=== PATIENT | female | born 1930 | race Caucasian/White ===

== ENCOUNTER 2016-04-09 13:02 | Inpatient (IN) | payer OTHER ==
[~2016-04-09] VITALS: Ht 165.1 cm; Wt 67.1 kg
[2016-04-09 15:15] VITALS: BP 152/60; PULSE 76; TEMP 37; O2SAT 91; BMI 27.6
[2016-04-09] MEDS ORDERED: CLON0.2T PO (16:39)
[2016-04-09] MEDS ORDERED: SYN100 (16:39)
[2016-04-09] MEDS ORDERED: NVLGI7030 SC ×2 (16:39)
[2016-04-09] MEDS ORDERED: [UNRECOGNIZED DRUG - CODE] (16:39)
[2016-04-09] MEDS ORDERED: SERT-234 PO (16:39)
[2016-04-09] MEDS ORDERED: AMLO-110 PO (16:39)
[2016-04-09] MEDS ORDERED: FLUT0.15 (16:39)
[2016-04-09] MEDS ORDERED: PANT40TA PO (16:39)
[2016-04-09] MEDS ORDERED: CALC667C4 PO (16:39)
[2016-04-09] MEDS ORDERED: LEVO-17 PO (16:39)
[2016-04-09] MEDS ORDERED: vitamin d (16:39)
[2016-04-09] MEDS ORDERED: POLYSOL4 OP (16:39)
[2016-04-09] MEDS ORDERED: IPRASOL4 INH (16:39)
[2016-04-09] MEDS ORDERED: CRFL PO (16:39)
[2016-04-09] MEDS ORDERED: B-CO1CAP17 PO (16:39)
[2016-04-09] MEDS ORDERED: CARV12.5 PO (16:39)
--- NOTE | 2016-04-09 17:50 | History and Physical ---
History & Physical H&P dictated. Treating for healthcare associated pneumonia, new A.Fib, ESRD on dialysis. With chronic conditions to include: vascular dementia, CAD, PAD, Depression.
[2016-04-09 17:51] LABS: BASO % 0.2 %; BASO ABS # 0.03 K/uL (0-0.2); EOS % 0.5 %; HEMATOCRIT 26.6 % (37-47); IG% 1.4 %; LYMPH % 7.6 %; LYMPH ABS # 1.02 K/uL (1.2-3.4); MEAN CELL VOLUME 96.4 fL (80-100); MEAN CORPUSCULAR HEMOGLOBIN 32.2 pg (25-34); MEAN CORPUSCULAR HGB CONC 33.5 g/dl (32-36); MEAN PLATELET VOLUME 8.6 fL (7.4-10.4); MONO % 4.9 %; NEUT % 85.4 %; PLATELET COUNT 239 K/uL (130-400); RED BLOOD COUNT 2.76 M/uL (4.2-5.4); WHITE BLOOD COUNT 13.38 K/uL (4.8-10.8)
[2016-04-09] MEDS ORDERED: PATIENT'S ALLERGY INFO NEEDS ENTERED SCH (18:00)
[2016-04-09] MEDS ORDERED: ARTIFICIAL TEARS OP SOLN OP PRN ×2 (18:00)
[2016-04-09 18:04] LABS: PARTIAL THROMBOPLASTIN RATIO 1.1
[2016-04-09 18:21] LABS: COMPLETE YES; MICROCYTOSIS PRESENT
[2016-04-09 18:35] LABS: ALB/GLOB RATIO 0.8 (0.9-2); BUN/CREATININE RATIO 4.3 (10-20); CALCIUM 9.4 mg/dl (8.5-10.1); CREATININE 6.1 mg/dl (0.60-1.20); POTASSIUM 3.5 mmol/L (3.5-5.1)
[2016-04-09] MEDS ORDERED: PHARMACY GLYCEMIC MGMT CONSULT PRN (18:58)
[2016-04-09] MEDS ORDERED: GLUCAGON FOR INJ 1 MG VIAL SQ PRN (19:00)
[2016-04-09] MEDS ORDERED: GLUCOSE 40% GEL 15 GM TUBE PO PRN (19:00)
[2016-04-09] MEDS ORDERED: GLUCOSE 10 TABS/TUBE PO PRN (19:00)
[2016-04-09] MEDS ORDERED: DEXTROSE 50% 50 ML SYR IV PRN (19:00)
[2016-04-09] MEDS ORDERED: HEPARIN 25,000 UNIT/500ML D5W 500 ML IV PRN (19:00)
[2016-04-09] MEDS: ALBUT/IPRATROP 3MG/0.5MG NEB 3 ML VIAL INH SCH (19:07)
[2016-04-09 19:09] VITALS: PULSE 76; O2SAT 83
[2016-04-09] MEDS ORDERED: VANCOMYCIN CONSULT ACTIVE PRN (19:15)
[2016-04-09] MEDS ORDERED: NURSING VERBAL MED ORDER ONE ×2 (19:15→19:30)
[2016-04-09] MEDS: NITROGLYCERIN OINT 2% 1GM PACKET EXT SCH (19:36)
[2016-04-09] MEDS: CARVEDILOL 12.5 MG TAB PO SCH (19:46)
[2016-04-09 19:52] VITALS: BP 154/65; PULSE 82; TEMP 37; O2SAT 94
[2016-04-09] MEDS ORDERED: ASPIRIN 81 MG ECTAB PO ONE (20:00)
[2016-04-09] MEDS ORDERED: VANCOMYCIN INJ 1,500 MG in SODIUM CHLORIDE 0.9% 500ML 500 ML IV SCH (20:00)
[2016-04-09] MEDS ORDERED: PANTOprazole SOD 40 MG TAB PO ONE (20:00)
--- NOTE | 2016-04-09 20:09 | HISTORY & PHYSICAL EXAMINATION ---
DATE OF ADMISSION: 04/09/2016 CHIEF COMPLAINT: The patient is a direct admit from an outlying hospital in [place]. She was apparently admitted there due to shortness of breath and hypoxia, it was felt to be due to a combination of pneumonia and pleural effusion, frequently. She had been placed on IV Rocephin and IV Levaquin for 3 days and there was concern that she was not improving. I also note that she appears to be in atrial fibrillation and I do not see that on any of her old records, so I am considering that a new finding. The patient has underlying vascular dementia, so history is taken from the chart. I evaluated the patient and asked her what her living arrangements are and she told me that she was living independently at home; however, I see that she is actually in either a [facility] or a personal senior living. So I do not feel her history is reliable. PAST MEDICAL HISTORY: Appears to be end-stage renal disease, on dialysis, coronary artery disease, type 2 diabetes mellitus insulin requiring, hyperlipidemia, hypothyroidism, depression, generalized weakness, ambulatory dysfunction, vascular dementia, peripheral vascular disease. PAST SURGICAL HISTORY: Surgeries are unknown at this time. ALLERGIES: She is allergic to no medications but HAS AN ALLERGY TO MOLD. MEDICATIONS: List of her medications include amlodipine 5 mg daily, calcium acetate 3 tablets 3 times per day with meals, clonidine 0.2 mg tablet twice a day, Coreg 12.5 mg twice a day, DuoNeb p.r.n., Flonase 2 sprays once daily in each nostril, GenTeal ophthalmic drops 1 drop each eye at bedtime. She was taking, I guess as an outpatient Levaquin 250 mg every 48 hours. Levothyroxine 100 mcg daily, Protonix 40 mg daily, Renal Caps 1 cap daily, sertraline 150 mg daily, Kayexalate 30 mL on Tuesday, Tuesday, and Tuesday. Systane ophthalmic drops 3 times a day, 1 drop each eye. Vitamin D and Carafate, this was a treatment for approximately 2 weeks apparently. Novolin N 70/30 16 units in the morning and 10 units at night plus a sliding scale. SOCIAL HISTORY: The patient resides at either a personal senior living or nursing facility. The chart says that she does have a history of tobacco abuse but not now. FAMILY HISTORY: Unknown. REVIEW OF SYSTEMS: A 10-system review was performed, all of which was negative and she did not even complain of cough or shortness of breath. She does not even know why she was transferred to our facility. PHYSICAL EXAMINATION: VITAL SIGNS: At our facility have temperature 37.0, pulse 76, respiratory rate of 20, blood pressure 152/60, pulse ox 91% on 2 liters nasal cannula. GENERAL: The patient is awake and alert. She is oriented to person, not in acute distress. HEENT: TMs intact. No inflammation. Extraocular muscles intact. Pupils equal, round, react to light and accommodation. Mucous membranes were moist. Throat was clear. NECK: No JVD or lymphadenopathy. LUNGS: Showed rhonchus sounds throughout with decreased breath sounds at the bases. HEART: Irregular with a normal S1 and S2, and a 3/6 systolic murmur that radiated to her right upper chest. ABDOMEN: Soft, nontender, nondistended, positive bowel sounds. EXTREMITIES: No clubbing, cyanosis or edema. NEUROLOGIC: Cranial nerves II-XII are grossly intact and nonfocal. SKIN: Warm and dry without obvious rash. PSYCHIATRIC: The patient is pleasantly demented. I ordered labs which are pending at this time as is a chest x-ray; however, one of the records that came from [facility] which was performed this morning, white blood cell count 15, hemoglobin 8.9, hematocrit 27.1, platelets of 253,000. Sodium 132, potassium 4.1, chloride 95, CO2 24, BUN 24, creatinine 5.74, albumin 2.9, AST of 44, ALT of 12. CPK 116 and troponin of 0.17. BNP was 2340. A CAT scan of the chest which was performed today, showing the following impression: Pleural effusions with patchy areas of presumed pneumonia within the right lung, probable superimposed pulmonary edema, 4.6 dilatation of a mid ascending thoracic aorta, indeterminate left adrenal mass. There does appear to be macroscopic fat and the mass may represent myelolipoma. ASSESSMENT AND PLAN: So the patient is assessed as: 1. Hypoxemia in the face of right-sided pneumonia and secondary pleural effusion, failing oral Levaquin and IV Rocephin for 3 days. 2. End-stage renal disease, requiring dialysis. 3. Vascular dementia. 4. Peripheral artery disease. 5. Hyperlipidemia. 6. Coronary artery disease. 7. History of peptic ulcer. 8. Atrial fibrillation which I have to consider new at this point, I do not see it listed on any of her records, either from the hospital or the nursing facility but I do not have any other EKGs to compare. She has also AFib on her monitor currently. PLAN: The patient is admitted on telemetry. Considering her healthcare associated pneumonia, therefore placing her on vancomycin IV and cefepime and asking pharmacy to evaluate and adjust those dosages in light of her renal disease, and I will put her on heparin drip because of the new onset atrial fibrillation and as we discussed with family and get input from specialist as to long-term anticoagulation, which is yet to be seen. She will be given supplemental oxygen and nebulizer therapies. She is already on Coreg and her heart rate is controlled at this time. We can always address that if she becomes tachycardic or has a rapid ventricular response. I have consulted nephrology to manage her end-stage renal disease and we will just Hep-Lock an IV, so not as to cause any more fluid overload. Physical and occupational therapy are consulted and DVT prophylaxis will be in the form of TEDs, SCDs and covered while she is on the heparin drip. Appropriate home medications are continued. We will put her on sliding scale insulin and will ask the pharmacist for glycemic management.
[2016-04-09] MEDS: CEFEPIME IV 1,000 MG in DEXTROSE 5% 100ML 100 ML IV SCH (20:21)
[2016-04-09] MEDS: CLONIDINE HCL 0.1 MG TAB PO SCH (20:23)
[2016-04-09] MEDS: INSULIN ASPART 100 UNITS/ML 3 ML PEN SC SCH (20:24)
--- NOTE | 2016-04-09 20:30 | Pharmacy Progress Note ---
Pharmacy Antibiotic Consult Date of Service: Apr 09, 2016. Pharmacy Dosing Scope Pharmacy is consulted to initiate Vancomycin IV dosing therapy, order appropriate labs and adjust drug dose/frequency for possible respiratory infection. Subjective The patient is a 85 year old female admitted on Apr 09, 2016 at 15:25. Objective Height (Feet): 5 Height (Inches): 5.00 Weight (Kilograms): 75.200 Lab Results (24hrs): Laboratory Tests Test 04/09/16 17:42 BUN/Creatinine Ratio 4.3 Blood Urea Nitrogen 26 mg/dl Creatinine 6.10 mg/dl White Blood Count 13.38 K/uL Red Blood Count 2.76 M/uL Hemoglobin 8.9 g/dL Hematocrit 26.6 % Mean Corpuscular Volume 96.4 fL Mean Corpuscular Hemoglobin 32.2 pg Mean Corpuscular Hemoglobin Concent 33.5 g/dl Platelet Count 239 K/uL Mean Platelet Volume 8.6 fL Neutrophils (%) (Auto) 85.4 % Lymphocytes (%) (Auto) 7.6 % Monocytes (%) (Auto) 4.9 % Eosinophils (%) (Auto) 0.5 % Basophils (%) (Auto) 0.2 % Neutrophils # (Auto) 11.41 K/uL Lymphocytes # (Auto) 1.02 K/uL Monocytes # (Auto) 0.66 K/uL Eosinophils # (Auto) 0.07 K/uL Basophils # (Auto) 0.03 K/uL Recent Pertinent Medications Also on Cefepime 1 gm IV q24h. Assessment & Plan * Loading dose: Vancomycin (20 mg/kg) = 1500 mg IV x1 dose ordered for tonight. * Patient's Scr = 6.1 and is on Hemodialysis. * Will dose Vancomycin based on levels. * Goal trough level estimate: between 15 - 20 mcg/mL for lower respiratory infection. * A random Vancomycin level has been ordered for 04/10/16 with AM labs. Pharmacy will continue to follow and will adjust dose/frequency as necessary. Thank you
[2016-04-09] MEDS ORDERED: CLONIDINE HCL 0.2 MG TAB PO SCH (21:00)
[2016-04-09] MEDS: INSULIN GLARGINE SOLOSTAR 100 UNITS/ML 3 ML PEN SC SCH (21:12)
--- NOTE | 2016-04-09 21:14 | Pharmacy Progress Note ---
Glycemic Control Intl Consult Date of Service Apr 09, 2016. Scope Glycemic Pharmacist consulted by Dr Garza on 04/09/16 for glycemic control and to write orders per [facility] inpatient glycemic control protocol Objective Weight (Kilograms): 75.200 Accuchecks BSG (last 24hrs): Test 04/09/16 16:08 04/09/16 17:42 04/09/16 20:05 Bedside Glucose 166 mg/dl (70-90) 152 mg/dl (70-90) Random Glucose 159 mg/dl (70-99) Laboratory Data (last 24hrs) Test 04/09/16 17:42 Anion Gap 13.0 mmol/L BUN/Creatinine Ratio 4.3 Blood Urea Nitrogen 26 mg/dl Creatinine 6.10 mg/dl Potassium Level 3.5 mmol/L Sodium Level 138 mmol/L White Blood Count 13.38 K/uL Red Blood Count 2.76 M/uL Hemoglobin 8.9 g/dL Hematocrit 26.6 % Mean Corpuscular Volume 96.4 fL Mean Corpuscular Hemoglobin 32.2 pg Mean Corpuscular Hemoglobin Concent 33.5 g/dl Platelet Count 239 K/uL Mean Platelet Volume 8.6 fL Neutrophils (%) (Auto) 85.4 % Lymphocytes (%) (Auto) 7.6 % Monocytes (%) (Auto) 4.9 % Eosinophils (%) (Auto) 0.5 % Basophils (%) (Auto) 0.2 % Neutrophils # (Auto) 11.41 K/uL Lymphocytes # (Auto) 1.02 K/uL Monocytes # (Auto) 0.66 K/uL Eosinophils # (Auto) 0.07 K/uL Basophils # (Auto) 0.03 K/uL HbA1c Test 04/09/16 17:42 Recent Pertinent Medications Outpatient Anti-diabetic Regimen: * Novolog 70/30 16 units AM and 10 units PM * A1c = PENDING from 04/09/16 Risk Factors for Insulin Resistance: * Steroids: N/A * Infection: Healthcare-associated pneumonia; on Cefepime and Vancomycin * Pressors: N/A * IVF: Heparin drip * Recent Surgery: N/A * Diet: Type II DM * Mechanical Ventilation: N/A Assessment & Plan ASSESSMENT: * ADA & AACE recommend a goal blood sugar range 140-180 mg/dl for the majority of critically ill & non-critically ill patients. However, more stringent targets may be selected in individual cases. * Patient is ESRD on HD. Most recent HbA1c unknown, current lab is still pending at time of chart review. Patient was receiving Novolog 70/30 26 units/ day as an outpatient. Last dose of insulin 16 units was taken this AM. Will convert Novolog 70/30 to basal + bolus regimen to optimize safety and ease of titration while inpatient with her pneumonia. Blood glucose appears to be well controlled at this time, therefore calculated Novolog CR and CF calculated using outpatient regimen. PLAN FOR INPATIENT GLYCEMIC CONTROL: * Basal insulin with LANTUS 8 units SQ BID * Give 1/2 dose (4 units) if BS less than 120 * Correctional Insulin with NOVOLOG per scale ACHS or Q6hrs while NPO * Goal Range: Low 120 mg/dL - High 160 mg/dL * Correction Factor: 45 mg/dL/unit * Nutritional / Prandial insulin per carb ratio of 1 unit per 16 grams CHO consumed * Please note that the plan above was derived based on current level of insulin resistance and hospital stress. These recommendations are appropriate for inpatient admission only. Plan of care upon discharge will need to be reassessed to avoid potential outpatient hypo/hyperglycemia. Thank you.
--- NOTE | 2016-04-09 22:06 | DIAGNOSTIC IMAGING REPORT ---
CHEST 2 VIEWS ROUTINE HISTORY: Short of breath. Pneumonia. COMPARISON: None. FINDINGS: No pneumothorax. The heart is mildly enlarged. There are poststernotomy changes. There is diffuse interstitial and vascular thickening. No focal lung consolidations. Bilateral hilar prominence. There are low lung volumes. Trace bilateral pleural effusions seen on the lateral view. IMPRESSION: 1. Diffuse interstitial and vascular thickening with mild cardiomegaly and trace bilateral pleural effusions. This likely represents mild interstitial pulmonary edema. 2. Bilateral hilar enlargement. This could be due to the pulmonary vascular congestion. However, follow-up is recommended to ensure resolution. Electronically signed by: Taras Funk M.D. 04/09/2016 10:05 PM Dictated Date/Time: 04/09/2016 10:03 PM
[2016-04-10] VITALS (24 sets, daily range): BP systolic 91–150; BP diastolic 41–70; PULSE 64–78; TEMP 36.4–36.9; O2SAT 83–95
[2016-04-10] MEDS: NITROGLYCERIN OINT 2% 1GM PACKET EXT SCH ×4 (02:00→19:38)
[2016-04-10 06:32] LABS: ESTIMATED AVERAGE GLUCOSE 183 mg/dl; HA1C FLAG Normal (Normal)
[2016-04-10] MEDS: ALBUT/IPRATROP 3MG/0.5MG NEB 3 ML VIAL INH SCH ×5 (07:00→19:20)
[2016-04-10] MEDS: LEVOTHYROXINE 100 MCG TAB PO SCH (07:37)
[2016-04-10] MEDS: CARVEDILOL 12.5 MG TAB PO SCH ×2 (07:38→19:37)
[2016-04-10] MEDS: PANTOprazole SOD 40 MG TAB PO SCH (07:38)
[2016-04-10] MEDS: SERTRALINE HCL 100 MG TAB PO SCH (07:38)
[2016-04-10] MEDS: CLONIDINE HCL 0.1 MG TAB PO SCH ×2 (07:38→19:38)
[2016-04-10] MEDS: INSULIN GLARGINE SOLOSTAR 100 UNITS/ML 3 ML PEN SC SCH ×2 (07:47→20:14)
[2016-04-10] MEDS: ONDANSETRON INJ 2 MG/ML 2 ML VIAL IV PRN (08:11)
[2016-04-10] MEDS: INSULIN ASPART 100 UNITS/ML 3 ML PEN SC SCH ×4 (08:55→20:14)
[2016-04-10 08:58] LABS: BASO % 0.5 %; BASO ABS # 0.05 K/uL (0-0.2); EOS % 3.6 %; HEMATOCRIT 26.3 % (37-47); IG% 1.3 %; LYMPH % 8.5 %; LYMPH ABS # 0.94 K/uL (1.2-3.4); MEAN CELL VOLUME 97.4 fL (80-100); MEAN CORPUSCULAR HEMOGLOBIN 32.6 pg (25-34); MEAN CORPUSCULAR HGB CONC 33.5 g/dl (32-36); MEAN PLATELET VOLUME 9.2 fL (7.4-10.4); MONO % 5.9 %; NEUT % 80.2 %; PLATELET COUNT 273 K/uL (130-400); WHITE BLOOD COUNT 11.07 K/uL (4.8-10.8)
[2016-04-10] MEDS ORDERED: NEPHROCAPS PO SCH (09:00)
[2016-04-10 09:10] LABS: PARTIAL THROMBOPLASTIN RATIO 1.1
[2016-04-10 09:42] LABS: BUN/CREATININE RATIO 4.3 (10-20); CALCIUM 9.1 mg/dl (8.5-10.1); CREATININE 6.9 mg/dl (0.60-1.20); POTASSIUM 3.7 mmol/L (3.5-5.1)
[2016-04-10] MEDS ORDERED: NURSING VERBAL MED ORDER ONE (10:00)
[2016-04-10 10:02] LABS: COMPLETE YES; POLYCHROMASIA 1+
--- NOTE | 2016-04-10 12:59 | Nephrology Consultation ---
Nephrology Consultation Date of Consultation: Apr 10, 2016. Attending Physician: Dr Boucher Requesting Physician: Dr Garza Reason for Consultation: ESRD History of Present Illness 85 year old female whom I'm asked to evaluate for ESRD care after she was transferred here from [facility] for mgt of PNA and ESRD. Other PMH as below. Pt granddaughter is at bedside today and helps w/ hx, to which pt cannot reliably contribute. She dialyzes MWF at [facility] under the care of a non [facility] weatherization coordinator (Dr. Wilde < spelling may be incorrect) via AVF. Her last tx was 04/07. She has reportedly been refusing more care recently per outpt unit > refused hospital initially yesterday even though her sats were in 60s on RA; refused dialysis; had reportedly/ possibly been refusing meds at facility. Has also been eating less and had lower blood pressures, lower interdialytic weight gains all of which is relatively new for this pt per outside unit staff. Here at [facility], pt is sitting up in her chair on RA w/ NAD; has nearly full lunch tray in front of her but tells me she's done. Granddaughter notes however that pt does not have her lower dentures and may not have had them for several days/weeks possibly. Pt willing to try some dialysis today, though not enthusiastic. Her K is 3.8 today and systolic blood pressures are labile from 90-150s. She was reportedly confrontational/ refusing care last evening and early this AM but willing to consider HD today. Past Medical/Surgical History -solitary kidney from -ESRD as above; on chronic HD since 2012; s/p R r-c AVF -DM >25 years -CAD s/p CABG 2012 -paroxysmal A fib -massive GI bleed 2012 c/b ischemic ATN -vascular dementia -? TIA -ambulatory dysfunction (w/c almost exclusively at her facility) -HL -hypothyroid -PVD Family History son w/ ESRD Social History Smoking Status: Former Smoker Alcohol Use: none Drug Use: none Marital Status: Housing Status: jail Occupation Status: disabled Allergies Coded Allergies: Molds and Smuts (Verified Allergy, Unknown, `, 04/09/16) Medications Current Inpatient Medications Medications (Trade) Dose Ordered Sig/Ivis Route Start Time Stop Time Status Last Admin Dose Admin Insulin Aspart (novoLOG ASPART) SLIDING SCALE G... ACHS SC 04/09/16 21:00 05/09/16 20:59 04/10/16 08:55 2 UNITS Albuterol/ Ipratropium (Duoneb) 3 ml QIDR INH 04/09/16 20:00 05/09/16 19:59 04/09/16 19:07 3 ML Carvedilol (Coreg Tab) 12.5 mg BID PO 04/09/16 21:00 05/09/16 20:59 04/10/16 07:38 12.5 MG Levothyroxine Sodium (Synthroid Tab) 100 mcg DAILYBB PO 04/10/16 06:00 05/10/16 05:59 04/10/16 07:37 100 MCG Pantoprazole Sodium (Protonix Tab) 40 mg QAM PO 04/10/16 09:00 05/10/16 08:59 04/10/16 07:38 40 MG Sertraline HCl (Zoloft Tab) 150 mg QAM PO 04/10/16 09:00 05/10/16 08:59 04/10/16 07:38 150 MG Ondansetron HCl (Zofran Inj) 4 mg Q6H PRN IV 04/09/16 17:15 05/09/16 17:14 04/10/16 08:11 4 MG Vitamin B Complex/ Vit C/Folic Acid 1 cap 1 cap QAM PO 04/10/16 09:00 05/10/16 08:59 04/10/16 07:38 1 CAP Cefepime HCl/ Dextrose (Maxipime IV/D5 100ml) 111.3 ml @ 200 mls/hr Q24H IV 04/09/16 20:00 04/16/16 19:59 04/09/16 20:21 200 MLS/HR Acetaminophen (Tylenol Tab) 650 mg Q4H PRN PO 04/09/16 17:15 05/09/16 17:14 Miscellaneous Information (Consult Glycemic Management Pharmacy) 1 ea UD PRN N/A 04/09/16 18:58 05/09/16 18:57 Artificial Tears (Artificial Tears) 1 drops Q3HWA PRN OP 04/09/16 18:00 05/09/16 17:59 Glucose (Glucose 40% Gel) 15-30 GRAMS 15 GRAMS... UD PRN PO 04/09/16 19:00 05/09/16 18:59 Glucose (Glucose Chew Tab) 4-8 Tablets 4 Tabl... UD PRN PO 04/09/16 19:00 05/09/16 18:59 Dextrose (Dextrose 50% 50ML Syringe) 25-50ML OF 50% DW IV FOR... UD PRN IV 04/09/16 19:00 05/09/16 18:59 Glucagon (Glucagon Inj) 1 mg UD PRN SQ 04/09/16 19:00 05/09/16 18:59 Vancomycin HCl (Consult) 1 ea UD PRN N/A 04/09/16 19:15 05/09/16 19:14 Nitroglycerin (Nitroglycerin 2% Oint) 1 inch Q6H EXT 04/09/16 20:00 05/09/16 19:59 04/10/16 07:37 1 INCH Clonidine HCl (Catapres Tab) 0.2 mg BID PO 04/09/16 21:00 05/09/16 20:59 04/10/16 07:38 0.2 MG Insulin Glargine (Lantus Solostar Pen) 8 unit BID SC 04/09/16 21:00 05/09/16 20:59 04/10/16 07:47 8 UNIT Home Meds and Scripts Medications Dose Route/Sig Max Daily Dose Days Date Category Novolog Mix 70/30 (Insulin Aspart Prota 70%/Aspart 30%) Susp 0 SC 04/09/16 Reported Novolog Mix 70/30 (Insulin Aspart Prota 70%/Aspart 30%) Susp 0 SC 04/09/16 Reported Carafate (Sucralfate) 1 Gm/10 Ml Therese 10 Ml PO BID 6 04/09/16 Reported [vitamin d] 04/09/16 Reported Systane (Polyethylene Glycol-Propylene) 1 Angelic Angelic 1 Drops OP QID 04/09/16 Reported Kayexalate (Sodium Polystyrene Sulfonate) 1 Gm Powd 04/09/16 Reported Zoloft (Sertraline HCl) 100 Mg Tab 100 Mg PO DAILY 04/09/16 Reported Nephrocaps (Vitamin B Complex/Vit C/Folic Acid) Cap 1 Cap PO DAILY 90 04/09/16 Reported Protonix (Pantoprazole Sodium) 40 Mg Tab 40 Mg PO DAILY 04/09/16 Reported Synthroid (Levothyroxine Sodium) 100 Mcg Tab 04/09/16 Reported Levaquin (Levofloxacin) 250 Mg Tab 250 Mg PO DAILY 10 04/09/16 Reported Flonase Allergy Relief (Fluticasone Propionate (Nasal)) 50 Mcg/Act Spr 04/09/16 Reported Duoneb (Ipratropium-Albuterol) 3 Ml Nebu 1 Treatment INH Q4H 04/09/16 Reported Coreg (Carvedilol) 12.5 Mg Tab 12.5 Mg PO 04/09/16 Reported Catapres (Clonidine Hcl) 0.2 Mg Tab 1 Tab PO BID 30 04/09/16 Reported Phoslo 667 Mg (Calcium Acetate) 667 Mg Cap 1 Cap PO WM 04/09/16 Reported Norvasc (Amlodipine Besylate) 5 Mg Tab 5 Mg PO DAILY 04/09/16 Reported Review of Systems Constitutional: No fatigue, No fever, No weakness, No weight loss Eyes: No worsening of vision ENT: No hearing loss Respiratory: No cough, No shortness of breath Cardiac: No chest pain, No edema, No palpitations Abdomen: + diarrhea (states had diarrhea last week (? if true)), No constipation, No nausea, No pain, No vomiting Musculoskeletal: No joint pain, No muscle pain, No swelling Female : + problem reported (states cont to void small amount daily; no change in voiding habit) Neuro: + balance problems, + memory loss, + weakness Psych: No anxiety, No depression symptoms Heme: No abnormal bleeding/bruising Endo: No fatigue Skin: No rash ROS limited by pt dementia Physical Exam Date Time Temp Pulse Resp B/P Pulse Ox O2 Delivery O2 Flow Rate FiO2 04/10/16 12:17 83 Room Air 04/10/16 11:21 36.7 69 19 93/51 90 Room Air 04/10/16 08:01 83 Room Air 04/10/16 07:20 144/56 04/10/16 04:18 Nasal Cannula 2.0 04/10/16 00:00 Nasal Cannula 2.0 04/09/16 20:00 Nasal Cannula 2.0 04/09/16 19:52 37.0 82 20 154/65 94 Nasal Cannula 2.0 04/09/16 19:09 76 18 83 Room Air 04/09/16 15:15 37.0 76 20 152/60 91 Nasal Cannula 2.0 24-Hour Column 04/10/16 08:00 Intake Total 685 ml Balance 685 ml General Appearance: WD/WN, no apparent distress, + pertinent finding (sitting up in chair on RA) Eyes: EOMI ENT: hearing grossly normal Neck: supple Respiratory/Chest: no respiratory distress, no accessory muscle use, + decreased breath sounds, + crackles Cardiovascular: no edema, + irregularly irregular Abdomen: normal bowel sounds, non tender, soft, + pertinent finding (no hinton) Extremities: no pedal edema, + pertinent finding (avf + t/b) Neurologic/Psych: alert, normal mood/affect, + pertinent finding (poor recall) Skin: no jaundice, warm/dry, no rash Diagnostics Last 24 Hours Test 04/09/16 16:08 04/09/16 17:42 04/09/16 20:05 04/10/16 08:14 Bedside Glucose 166 mg/dl 152 mg/dl 229 mg/dl White Blood Count 13.38 K/uL Red Blood Count 2.76 M/uL Hemoglobin 8.9 g/dL Hematocrit 26.6 % Mean Corpuscular Volume 96.4 fL Mean Corpuscular Hemoglobin 32.2 pg Mean Corpuscular Hemoglobin Concent 33.5 g/dl Platelet Count 239 K/uL Mean Platelet Volume 8.6 fL Neutrophils (%) (Auto) 85.4 % Lymphocytes (%) (Auto) 7.6 % Monocytes (%) (Auto) 4.9 % Eosinophils (%) (Auto) 0.5 % Basophils (%) (Auto) 0.2 % Neutrophils # (Auto) 11.41 K/uL Lymphocytes # (Auto) 1.02 K/uL Monocytes # (Auto) 0.66 K/uL Eosinophils # (Auto) 0.07 K/uL Basophils # (Auto) 0.03 K/uL RDW Standard Deviation 58.0 fL RDW Coefficient of Variation 16.9 % Immature Granulocyte % (Auto) 1.4 % Immature Granulocyte # (Auto) 0.19 K/uL Microcytosis PRESENT Prothrombin Time 11.0 SECONDS Prothromb Time International Ratio 1.0 Activated Partial Thromboplast Time 29.6 SECONDS Partial Thromboplastin Ratio 1.1 Sodium Level 138 mmol/L Potassium Level 3.5 mmol/L Chloride Level 97 mmol/L Carbon Dioxide Level 28 mmol/L Anion Gap 13.0 mmol/L Blood Urea Nitrogen 26 mg/dl Creatinine 6.10 mg/dl Est Creatinine Clear Calc Drug Dose 6.6 ml/min Estimated GFR () 6.6 Estimated GFR (Non- 5.7 BUN/Creatinine Ratio 4.3 Random Glucose 159 mg/dl Estimated Average Glucose 183 mg/dl Hemoglobin A1c 8.0 % Lactic Acid Level 1.2 mmol/L Calcium Level 9.4 mg/dl Total Bilirubin 0.3 mg/dl Aspartate Amino Transf (AST/SGOT) 24 U/L Alanine Aminotransferase (ALT/SGPT) 14 U/L Alkaline Phosphatase 62 U/L Troponin I 2.620 ng/ml Total Protein 6.6 gm/dl Albumin 2.9 gm/dl Globulin 3.7 gm/dl Albumin/Globulin Ratio 0.8 Test 04/10/16 08:25 04/10/16 11:14 White Blood Count 11.07 K/uL Red Blood Count 2.70 M/uL Hemoglobin 8.8 g/dL Hematocrit 26.3 % Mean Corpuscular Volume 97.4 fL Mean Corpuscular Hemoglobin 32.6 pg Mean Corpuscular Hemoglobin Concent 33.5 g/dl Platelet Count 273 K/uL Mean Platelet Volume 9.2 fL Neutrophils (%) (Auto) 80.2 % Lymphocytes (%) (Auto) 8.5 % Monocytes (%) (Auto) 5.9 % Eosinophils (%) (Auto) 3.6 % Basophils (%) (Auto) 0.5 % Neutrophils # (Auto) 8.89 K/uL Lymphocytes # (Auto) 0.94 K/uL Monocytes # (Auto) 0.65 K/uL Eosinophils # (Auto) 0.40 K/uL Basophils # (Auto) 0.05 K/uL RDW Standard Deviation 60.0 fL RDW Coefficient of Variation 17.1 % Immature Granulocyte % (Auto) 1.3 % Immature Granulocyte # (Auto) 0.14 K/uL Nucleated RBC Absolute Count (auto) 0.03 K/uL Nucleated Red Blood Cells % 0.3 % Polychromasia 1+ Activated Partial Thromboplast Time 28.1 SECONDS Partial Thromboplastin Ratio 1.1 Sodium Level 138 mmol/L Potassium Level 3.7 mmol/L Chloride Level 97 mmol/L Carbon Dioxide Level 25 mmol/L Anion Gap 16.0 mmol/L Blood Urea Nitrogen 29 mg/dl Creatinine 6.90 mg/dl Est Creatinine Clear Calc Drug Dose 5.8 ml/min Estimated GFR () 5.7 Estimated GFR (Non- 4.9 BUN/Creatinine Ratio 4.3 Random Glucose 217 mg/dl Calcium Level 9.1 mg/dl Troponin I 1.790 ng/ml Random Vancomycin Level 16.0 mcg/ml Bedside Glucose 181 mg/dl Diagnostic Radiology: cxr mild pulm edema; hilar fullness EKG: ecg AFib Assessment & Plan 85 y/o F w/ ESRD on MWF HD, dementia, DM, solitary kidney, CAD, a fib, PVD admitted with AF and pneumonia ESRD Her blood pressure is labile but generally acceptable; she has some mild fluid overload but is not likely to tolerate aggressive UF; ? if behavioral issues will limit dialysis in this for pt unfamiliar environment -gentle HD today at bedside on 3 K bath, up to 1L UF as bp tolerates -next hd tentatively for 04/12 or as clinical needs dictate -daily bmp pls -note not on binders here though is as outpt - will add if phos shows need; will make nephrovite HS Anemia of esrd -10 k epo w/ HD; will add iron studies to admission labs PNA on vanco and cefepime; lactate wnl; on RA currently but lung exam/ CXR noted a fib -low threshold to check TSH if indicated; per granddaughter who is a nurse this is not a new dx. Appreciate consult; will follow with you; will coordinate care w/ Dr. Lynch.
[2016-04-10 13:39] LABS: PHOSPHORUS 3.1 mg/dl (2.5-4.9)
[2016-04-10] MEDS ORDERED: HEPARIN SOD (PORCINE) 1000 UNIT/ML 10 ML VIAL IV SCH (14:45)
[2016-04-10] MEDS: HEPARIN SOD (PORCINE) 1000 UNIT/ML 10 ML VIAL IV SCH ×2 (15:45→16:15)
[2016-04-10] MEDS: NEPHROCAPS PO SCH (19:38)
[2016-04-10] MEDS: CEFEPIME IV 1,000 MG in DEXTROSE 5% 100ML 100 ML IV SCH (19:40)
--- NOTE | 2016-04-10 20:16 | Hospitalist Progress Note ---
Hospitalist Progress Note Date of Service Apr 10, 2016. Subjective Pt evaluation today including: conversation w/ patient, physical exam, chart review, lab review, review of studies, review of inpatient medication list Patient had no complaints she was receiving dialysis when I saw her. No chest pain, lightheadedness or fever/chills. Additional Comments: A 10 system review was performed and all were negative. Positives were placed in the subjective section. Objective Vital Signs Date Time Temp Pulse Resp B/P Pulse Ox O2 Delivery O2 Flow Rate FiO2 04/10/16 19:21 76 18 90 Room Air 04/10/16 19:06 36.7 76 18 150/51 90 Room Air 04/10/16 18:59 36.9 66 106/46 04/10/16 17:30 74 96/48 04/10/16 17:15 77 95/41 04/10/16 17:00 64 97/45 04/10/16 16:45 64 98/48 04/10/16 16:30 66 98/48 04/10/16 16:22 83 Room Air 04/10/16 16:15 69 101/44 04/10/16 16:00 67 91/45 04/10/16 15:45 65 104/46 04/10/16 15:43 36.4 67 18 106/51 90 Room Air 04/10/16 15:30 66 101/43 04/10/16 15:19 74 106/43 04/10/16 15:12 36.7 67 106/51 04/10/16 12:17 83 Room Air 04/10/16 11:22 64 18 90 Room Air 04/10/16 11:21 36.7 69 19 93/51 90 Room Air 04/10/16 08:01 83 Room Air 04/10/16 07:20 144/56 04/10/16 04:18 Nasal Cannula 2.0 04/10/16 00:00 Nasal Cannula 2.0 Physical Exam Notes: GENERAL: The patient is awake and alert. She is oriented to person, not in acute distress. HEENT: TMs intact. No inflammation. Extraocular muscles intact. Pupils equal, round, react to light and accommodation. Mucous membranes were moist. Throat was clear. NECK: No JVD or lymphadenopathy. LUNGS: Showed less rhonchus sounds throughout with decreased breath sounds at the bases. HEART: Irregular with a normal S1 and S2, and a 3/6 systolic murmur that radiated to her right upper chest. ABDOMEN: Soft, nontender, nondistended, positive bowel sounds. EXTREMITIES: No clubbing, cyanosis or edema. NEUROLOGIC: Cranial nerves II-XII are grossly intact and nonfocal. SKIN: Warm and dry without obvious rash. PSYCHIATRIC: The patient is pleasantly demented. Laboratory Results Last 24 Hours Test 04/10/16 08:14 04/10/16 08:25 04/10/16 11:14 04/10/16 16:02 Bedside Glucose 229 mg/dl 181 mg/dl 150 mg/dl White Blood Count 11.07 K/uL Red Blood Count 2.70 M/uL Hemoglobin 8.8 g/dL Hematocrit 26.3 % Mean Corpuscular Volume 97.4 fL Mean Corpuscular Hemoglobin 32.6 pg Mean Corpuscular Hemoglobin Concent 33.5 g/dl Platelet Count 273 K/uL Mean Platelet Volume 9.2 fL Neutrophils (%) (Auto) 80.2 % Lymphocytes (%) (Auto) 8.5 % Monocytes (%) (Auto) 5.9 % Eosinophils (%) (Auto) 3.6 % Basophils (%) (Auto) 0.5 % Neutrophils # (Auto) 8.89 K/uL Lymphocytes # (Auto) 0.94 K/uL Monocytes # (Auto) 0.65 K/uL Eosinophils # (Auto) 0.40 K/uL Basophils # (Auto) 0.05 K/uL RDW Standard Deviation 60.0 fL RDW Coefficient of Variation 17.1 % Immature Granulocyte % (Auto) 1.3 % Immature Granulocyte # (Auto) 0.14 K/uL Nucleated RBC Absolute Count (auto) 0.03 K/uL Nucleated Red Blood Cells % 0.3 % Polychromasia 1+ Activated Partial Thromboplast Time 28.1 SECONDS Partial Thromboplastin Ratio 1.1 Sodium Level 138 mmol/L Potassium Level 3.7 mmol/L Chloride Level 97 mmol/L Carbon Dioxide Level 25 mmol/L Anion Gap 16.0 mmol/L Blood Urea Nitrogen 29 mg/dl Creatinine 6.90 mg/dl Est Creatinine Clear Calc Drug Dose 5.8 ml/min Estimated GFR () 5.7 Estimated GFR (Non- 4.9 BUN/Creatinine Ratio 4.3 Random Glucose 217 mg/dl Calcium Level 9.1 mg/dl Phosphorus Level 3.1 mg/dl Iron Level 70 mcg/dl Total Iron Binding Capacity 141 mcg/dl Transferrin 121 mg/dl Transferrin % Saturation 41 % Troponin I 1.790 ng/ml Random Vancomycin Level 16.0 mcg/ml Test 04/10/16 19:54 Bedside Glucose 150 mg/dl Assessment and Plan 1. Hypoxemia in the face of right-sided pneumonia and secondary pleural effusion - Vanco d/c'd today. remains on .IV Cefepime 2. End-stage renal disease, requiring dialysis which she had today. 3. Vascular dementia. 4. Peripheral artery disease. 5. Hyperlipidemia. 6. Coronary artery disease. 7. History of peptic ulcer. 8. Atrial fibrillation - rate controlled, due to fall risk full anticoagulation withheld.
[2016-04-11] VITALS (17 sets, daily range): BP systolic 103–136; BP diastolic 47–84; PULSE 59–76; TEMP 36.5–36.9; O2SAT 68–98
[2016-04-11] MEDS: NITROGLYCERIN OINT 2% 1GM PACKET EXT SCH ×4 (01:44→20:01)
[2016-04-11] MEDS: LEVOTHYROXINE 100 MCG TAB PO SCH (06:00)
[2016-04-11] MEDS: ALBUT/IPRATROP 3MG/0.5MG NEB 3 ML VIAL INH SCH ×2 (07:58→11:17)
[2016-04-11] MEDS: CARVEDILOL 12.5 MG TAB PO SCH ×2 (08:05→19:59)
[2016-04-11] MEDS: CLONIDINE HCL 0.1 MG TAB PO SCH ×2 (08:05→19:59)
[2016-04-11] MEDS: PANTOprazole SOD 40 MG TAB PO SCH (08:06)
[2016-04-11] MEDS: SERTRALINE HCL 100 MG TAB PO SCH (08:06)
[2016-04-11] MEDS: INSULIN ASPART 100 UNITS/ML 3 ML PEN SC SCH ×4 (08:35→20:49)
[2016-04-11] MEDS: INSULIN GLARGINE SOLOSTAR 100 UNITS/ML 3 ML PEN SC SCH ×2 (08:36→20:48)
[2016-04-11] MEDS: ONDANSETRON INJ 2 MG/ML 2 ML VIAL IV PRN (08:39)
[2016-04-11 09:40] LABS: HEMATOCRIT 24.5 % (37-47); MEAN CELL VOLUME 100.8 fL (80-100); MEAN CORPUSCULAR HEMOGLOBIN 32.1 pg (25-34); MEAN CORPUSCULAR HGB CONC 31.8 g/dl (32-36); MEAN PLATELET VOLUME 8.7 fL (7.4-10.4); PLATELET COUNT 229 K/uL (130-400); RED BLOOD COUNT 2.43 M/uL (4.2-5.4); WHITE BLOOD COUNT 9.91 K/uL (4.8-10.8)
[2016-04-11 09:52] LABS: PARTIAL THROMBOPLASTIN RATIO 1.1
[2016-04-11 10:20] LABS: BUN/CREATININE RATIO 3.8 (10-20); CALCIUM 8.6 mg/dl (8.5-10.1); CREATININE 5.1 mg/dl (0.60-1.20); POTASSIUM 3.8 mmol/L (3.5-5.1)
[2016-04-11 10:22] LABS: COMPLETE YES; EOSINOPHIL % 3.5 %; LYMPH ABS # 0.78 K/uL (1.2-3.4); LYMPHOCYTE % 7.9 %; MYELOCYTE % 0.9 %; NEUTROPHILS % 85.9 %
--- NOTE | 2016-04-11 12:45 | Hospitalist Progress Note ---
Hospitalist Progress Note Date of Service Apr 11, 2016. Subjective Pt evaluation today including: conversation w/ patient, physical exam, chart review, lab review, review of studies, review of inpatient medication list Patient tells me that she feels about the same as yesterday. I noted that Hgb has decreased to 7.8 today. I discussed this with her and she is agreeable to transfusion. I dont feel that she is actively bleeding but rather dilutional effect. Her WBC has normalized today. She is afebrile. Additional Comments: A 10 system review was performed and all were negative. Positives were placed in the subjective section. Objective Vital Signs Date Time Temp Pulse Resp B/P Pulse Ox O2 Delivery O2 Flow Rate FiO2 04/11/16 11:26 36.7 64 18 112/61 95 Nasal Cannula 2.0 04/11/16 08:56 83 Room Air 04/11/16 08:12 36.9 76 18 122/59 90 Nasal Cannula 2.0 04/11/16 04:00 92 Nasal Cannula 2.0 04/11/16 03:26 36.5 65 17 118/64 91 Nasal Cannula 2.0 04/11/16 00:00 Room Air 04/10/16 23:34 92 Nasal Cannula 2.0 04/10/16 23:30 36.9 75 16 137/70 85 Room Air 04/10/16 20:00 Room Air 04/10/16 19:21 76 18 90 Room Air 04/10/16 19:06 36.7 76 18 150/51 90 Room Air 04/10/16 18:59 36.9 66 106/46 04/10/16 17:30 74 96/48 04/10/16 17:15 77 95/41 04/10/16 17:00 64 97/45 04/10/16 16:45 64 98/48 04/10/16 16:30 66 98/48 04/10/16 16:22 83 Room Air 04/10/16 16:15 69 101/44 04/10/16 16:00 67 91/45 04/10/16 15:45 65 104/46 04/10/16 15:43 36.4 67 18 106/51 90 Room Air 04/10/16 15:30 66 101/43 04/10/16 15:19 74 106/43 04/10/16 15:12 36.7 67 106/51 Physical Exam Notes: GENERAL: The patient is awake and alert. She is oriented to person, not in acute distress. HEENT: TMs intact. No inflammation. Extraocular muscles intact. Pupils equal, round, react to light and accommodation. Mucous membranes were moist. Throat was clear. NECK: No JVD or lymphadenopathy. LUNGS: Decreased breath sounds at the bases, but otherwise fairly clear. HEART: Irregular with a normal S1 and S2, and a 3/6 systolic murmur that radiated to her right upper chest. ABDOMEN: Soft, nontender, nondistended, positive bowel sounds. EXTREMITIES: No clubbing, cyanosis or edema. NEUROLOGIC: Cranial nerves II-XII are grossly intact and nonfocal. SKIN: Warm and dry without obvious rash. PSYCHIATRIC: The patient is pleasant and I noticed today that her confusion is much less than it had been the past 2 days. She does have dementia. Laboratory Results Last 24 Hours Test 04/10/16 16:02 04/10/16 19:54 04/11/16 06:52 04/11/16 09:25 Bedside Glucose 150 mg/dl 150 mg/dl 187 mg/dl White Blood Count 9.91 K/uL Red Blood Count 2.43 M/uL Hemoglobin 7.8 g/dL Hematocrit 24.5 % Mean Corpuscular Volume 100.8 fL Mean Corpuscular Hemoglobin 32.1 pg Mean Corpuscular Hemoglobin Concent 31.8 g/dl Platelet Count 229 K/uL Mean Platelet Volume 8.7 fL RDW Standard Deviation 62.9 fL RDW Coefficient of Variation 17.5 % Neutrophils % (Manual) 85.9 % Lymphocytes % (Manual) 7.9 % Monocytes % (Manual) 1.8 % Eosinophils % (Manual) 3.5 % Myelocytes % 0.9 % Neutrophils # (Manual) 8.51 K/uL Total Absolute Neutrophils 8.51 K/uL Lymphocytes # (Manual) 0.78 K/uL Total Absolute Lymphocytes 0.78 K/uL Monocytes # (Manual) 0.18 K/uL Eosinophils # (Manual) 0.35 K/uL Myelocytes # 0.09 K/uL Red Blood Cell Morphology Unremarkable Activated Partial Thromboplast Time 28.4 SECONDS Partial Thromboplastin Ratio 1.1 Sodium Level 139 mmol/L Potassium Level 3.8 mmol/L Chloride Level 101 mmol/L Carbon Dioxide Level 29 mmol/L Anion Gap 9.0 mmol/L Blood Urea Nitrogen 19 mg/dl Creatinine 5.10 mg/dl Est Creatinine Clear Calc Drug Dose 7.9 ml/min Estimated GFR () 8.2 Estimated GFR (Non- 7.1 BUN/Creatinine Ratio 3.8 Random Glucose 207 mg/dl Calcium Level 8.6 mg/dl Test 04/11/16 11:07 Bedside Glucose 223 mg/dl Assessment and Plan 1. Hypoxemia in the face of right-sided pneumonia and secondary pleural effusion - Continue of Cefepime IV. [place] Vanco not needed. 2. End-stage renal disease - She was dialyzed yesterday. . 3. Vascular dementia. 4. Peripheral artery disease. 5. Hyperlipidemia. 6. Coronary artery disease. 7. History of peptic ulcer. 8. Atrial fibrillation - rate controlled, due to fall risk full anticoagulation withheld. 9. chronic anemia with Hgb dropping to 7.8 today. I discussed with the patient and she agreed to have 1 unit. I obtained consent. DVT prophylaxis in the form of TEDs, SCD, and sub-q heparin. Continued [facility] stay due to: multiple IV medications needed
--- NOTE | 2016-04-11 14:40 | Pharmacy Progress Note ---
Glycemic Control: Progress Nt Date of Service Apr 11, 2016. Scope Glycemic Pharmacist consulted by Dr Garza on 04/09 for glycemic control and to write orders per [facility] inpatient glycemic control protocol. Objective Accuchecks BSG (last 24hrs): Test 04/10/16 16:02 04/10/16 19:54 04/11/16 06:52 04/11/16 09:25 Bedside Glucose 150 mg/dl (70-90) 150 mg/dl (70-90) 187 mg/dl (70-90) Random Glucose 207 mg/dl (70-99) Test 04/11/16 11:07 Bedside Glucose 223 mg/dl (70-90) Laboratory Data (last 24hrs) Test 04/11/16 09:25 Anion Gap 9.0 mmol/L BUN/Creatinine Ratio 3.8 Blood Urea Nitrogen 19 mg/dl Creatinine 5.10 mg/dl Potassium Level 3.8 mmol/L Sodium Level 139 mmol/L White Blood Count 9.91 K/uL Red Blood Count 2.43 M/uL Hemoglobin 7.8 g/dL Hematocrit 24.5 % Mean Corpuscular Volume 100.8 fL Mean Corpuscular Hemoglobin 32.1 pg Mean Corpuscular Hemoglobin Concent 31.8 g/dl Platelet Count 229 K/uL Mean Platelet Volume 8.7 fL HbA1c: Test 04/09/16 17:42 Hemoglobin A1c 8.0 % (4.5-5.6) H Recent Pertinent Medications Outpatient Anti-diabetic Regimen: * Novolog 70/30 16 units SC qAM, 10 units qPM * A1c = 8.0 % on 04/09/16 The patient is currently receiving: * Basal insulin: Lantus 8 units every 12 hours - 1/2 dose for BSG < 120 mg/dL * Correctional Insulin: Novolog Correction per scale ACHS Goal Range: Low 120 mg/dL - High 160 mg/dL Correction Factor: 35 mg/dL/unit * Prandial insulin: Per carb ratio of 1 unit per 12 grams CHO consumed Risk Factors for Insulin Resistance: * Steroids: methylprednisolone 40 mg IV q8h (starting today @ 1500) * Infection: PNA - on cefepime * Diet: T2DM Assessment & Plan ASSESSMENT: * ADA & AACE recommend a goal blood sugar range 140-180 mg/dl for the majority of critically ill & non-critically ill patients. However, more stringent targets may be selected in individual cases. * 85 yo F with hypoxemia 2nd PNA - on cefepime. Hx ESRD, chronic outpatient HD. Patient was last dialyzed 04/10. * BSG's trending up slightly today, possibly due to decreased insulin sensitivity as patient is not being dialyzed today. Furthermore, patient is starting steroids which is likely to increase insulin resistance * Will tighten carb ratio as this is best to manage steroid-induced hyperglycemia * Will also tighten correction factor as BSG's were increasing prior to initiation of steroids * Will keep Lantus the same as this is already > 50% of her total daily insulin dose yesterday * Will add in overnight BSG check to provide additional insulin, if necessary PLAN FOR INPATIENT GLYCEMIC CONTROL: * Basal insulin with LANTUS 8 units SQ BID - 1/2 dose for BSG < 120 mg/dL * Correctional Insulin with NOVOLOG per scale ACHS or Q6hrs while NPO - add check at 0200 * Goal Range: Low 120 mg/dL - High 160 mg/dL * Tighten Correction Factor: 35 mg/dL/unit * Tighten Nutritional / Prandial insulin per carb ratio of 1 unit per 12 grams CHO consumed * Please note that the plan above was derived based on current level of insulin resistance and hospital stress. These recommendations are appropriate for inpatient admission only. Plan of care upon discharge will need to be reassessed to avoid potential outpatient hypo/hyperglycemia. Thank you.
[2016-04-11] MEDS: METHYLPREDNISOLONE IV 40 MG in SYRINGE 0 ML IV SCH ×2 (14:50→21:35)
[2016-04-11] MEDS ORDERED: ALBUT/IPRATROP 3MG/0.5MG NEB 3 ML VIAL INH PRN (16:00)
[2016-04-11] MEDS ORDERED: ALBUT/IPRATROP 3MG/0.5MG NEB 3 ML VIAL INH SCH (16:00)
[2016-04-11] MEDS: CEFEPIME IV 1,000 MG in DEXTROSE 5% 100ML 100 ML IV SCH (19:58)
[2016-04-11] MEDS: NEPHROCAPS PO SCH (19:59)
[2016-04-11] MEDS: HEPARIN SOD 5000 UNIT/0.5 ML CARP SQ SCH (20:49)
[2016-04-12] VITALS (26 sets, daily range): BP systolic 89–165; BP diastolic 41–79; PULSE 48–77; TEMP 36.4–36.9; O2SAT 83–98
[2016-04-12] MEDS ORDERED: INSULIN ASPART 100 UNITS/ML 3 ML PEN SC ONE (02:00)
[2016-04-12] MEDS: NITROGLYCERIN OINT 2% 1GM PACKET EXT SCH ×2 (02:00→07:20)
[2016-04-12 05:22] LABS: BASO % 0.2 %; BASO ABS # 0.02 K/uL (0-0.2); EOS % 0.1 %; HEMATOCRIT 25.8 % (37-47); IG% 1.3 %; MEAN CELL VOLUME 98.5 fL (80-100); MEAN CORPUSCULAR HEMOGLOBIN 32.1 pg (25-34); MEAN CORPUSCULAR HGB CONC 32.6 g/dl (32-36); MONO % 1.7 %; NEUT % 91.7 %; PLATELET COUNT 234 K/uL (130-400); RED BLOOD COUNT 2.62 M/uL (4.2-5.4); WHITE BLOOD COUNT 9.98 K/uL (4.8-10.8)
[2016-04-12 05:55] LABS: COMPLETE YES
[2016-04-12 06:01] LABS: BUN/CREATININE RATIO 4.6 (10-20); CALCIUM 8.7 mg/dl (8.5-10.1); CREATININE 6.3 mg/dl (0.60-1.20); POTASSIUM 4.7 mmol/L (3.5-5.1)
[2016-04-12] MEDS: LEVOTHYROXINE 100 MCG TAB PO SCH (06:05)
[2016-04-12] MEDS: METHYLPREDNISOLONE IV 40 MG in SYRINGE 0 ML IV SCH ×3 (06:05→20:55)
[2016-04-12] MEDS: INSULIN ASPART 100 UNITS/ML 3 ML PEN SC SCH ×4 (07:00→20:58)
[2016-04-12] MEDS: CLONIDINE HCL 0.1 MG TAB PO SCH ×2 (07:21→20:55)
[2016-04-12] MEDS: PANTOprazole SOD 40 MG TAB PO SCH (07:21)
[2016-04-12] MEDS: CARVEDILOL 12.5 MG TAB PO SCH ×2 (07:21→20:55)
[2016-04-12] MEDS: SERTRALINE HCL 100 MG TAB PO SCH (07:21)
[2016-04-12] MEDS ORDERED: EPOETIN ALFA INJ 12,000 UNITS in SYRINGE 0 ML IV. SCH (08:00)
[2016-04-12] MEDS ORDERED: EPOETIN ALFA 10,000 UNITS/ML VIAL IV. ONE (08:00)
[2016-04-12] MEDS ORDERED: HEPARIN SOD (PORCINE) 1000 UNIT/ML 10 ML VIAL IV SCH ×2 (08:00)
--- NOTE | 2016-04-12 08:23 | Nephrology Progress Note ---
Nephrology Progress Note Date of Service: Apr 12, 2016. Subjective sitting up eating breakfast; fewer behavioral issues compared to first night in [facility]; denies dyspnea or chest pain but now wearing ntg paste and 02nc; no issues on technical asst; had pRBC 1 unit yesterday for dropped hgb Objective Date Time Temp Pulse Resp B/P Pulse Ox O2 Delivery O2 Flow Rate FiO2 04/12/16 07:45 36.6 66 18 101/49 91 Nasal Cannula 2.0 04/12/16 04:46 36.9 60 17 98/52 96 Nasal Cannula 2.0 04/12/16 04:00 Nasal Cannula 2.0 04/12/16 00:00 Nasal Cannula 2.0 04/11/16 20:00 Nasal Cannula 2.0 04/11/16 19:36 36.9 68 97 114/52 97 Nasal Cannula 3.0 04/11/16 19:00 36.9 68 18 114/52 97 2.0 04/11/16 18:30 36.8 66 18 122/67 98 2.0 04/11/16 18:00 36.7 67 18 122/69 68 2.0 04/11/16 17:45 36.7 66 18 122/68 97 2.0 04/11/16 17:30 36.7 68 18 128/66 96 2.0 04/11/16 17:15 36.7 66 18 136/84 96 2.0 04/11/16 17:00 36.7 66 18 116/47 96 2.0 04/11/16 16:02 83 Room Air 04/11/16 15:57 36.7 59 20 103/60 98 Room Air 04/11/16 12:37 83 Room Air 04/11/16 11:26 36.7 64 18 112/61 95 Nasal Cannula 2.0 04/11/16 11:17 66 18 92 Nasal Cannula 2.0 04/11/16 08:56 83 Room Air Physical Exam: General Appearance: WD/WN, no apparent distress, + pertinent finding (in bed on 02NC) Eyes: EOMI ENT: hearing grossly normal Neck: supple Respiratory/Chest: no respiratory distress, no accessory muscle use, + decreased breath sounds, + crackles, prolonged exp phase and occasional wheeze Cardiovascular: no edema, + irregularly irregular Abdomen: normal bowel sounds, non tender, soft, + pertinent finding (no hinton) Extremities: no pedal edema, + pertinent finding (avf + t/b R wrist) Neurologic/Psych: alert, normal mood/affect, + pertinent finding (poor recall) Skin: no jaundice, warm/dry, no rash Current Inpatient Medications Medications (Trade) Dose Ordered Sig/Ivis Route Start Time Stop Time Status Last Admin Dose Admin Insulin Aspart (novoLOG ASPART) SLIDING SCALE G... ACHS SC 04/09/16 21:00 05/09/16 20:59 04/11/16 20:49 3 UNITS Carvedilol (Coreg Tab) 12.5 mg BID PO 04/09/16 21:00 05/09/16 20:59 04/12/16 07:21 12.5 MG Levothyroxine Sodium (Synthroid Tab) 100 mcg DAILYBB PO 04/10/16 06:00 05/10/16 05:59 04/12/16 06:05 100 MCG Pantoprazole Sodium (Protonix Tab) 40 mg QAM PO 04/10/16 09:00 05/10/16 08:59 04/12/16 07:21 40 MG Sertraline HCl (Zoloft Tab) 150 mg QAM PO 04/10/16 09:00 05/10/16 08:59 04/12/16 07:21 150 MG Ondansetron HCl 4 mg 4 mg Q6H PRN IV 04/09/16 17:15 05/09/16 17:14 04/11/16 08:39 4 MG Cefepime HCl/ Dextrose (Maxipime IV/D5 100ml) 111.3 ml @ 200 mls/hr Q24H IV 04/09/16 20:00 04/16/16 19:59 04/11/16 19:58 200 MLS/HR Acetaminophen (Tylenol Tab) 650 mg Q4H PRN PO 04/09/16 17:15 05/09/16 17:14 Miscellaneous Information (Consult Glycemic Management Pharmacy) 1 ea UD PRN N/A 04/09/16 18:58 05/09/16 18:57 Artificial Tears (Artificial Tears) 1 drops Q3HWA PRN OP 04/09/16 18:00 05/09/16 17:59 Glucose (Glucose 40% Gel) 15-30 GRAMS 15 GRAMS... UD PRN PO 04/09/16 19:00 05/09/16 18:59 Glucose (Glucose Chew Tab) 4-8 Tablets 4 Tabl... UD PRN PO 04/09/16 19:00 05/09/16 18:59 Dextrose (Dextrose 50% 50ML Syringe) 25-50ML OF 50% DW IV FOR... UD PRN IV 04/09/16 19:00 05/09/16 18:59 Glucagon (Glucagon Inj) 1 mg UD PRN SQ 04/09/16 19:00 05/09/16 18:59 Nitroglycerin (Nitroglycerin 2% Oint) 1 inch Q6H EXT 04/09/16 20:00 05/09/16 19:59 04/12/16 07:20 1 INCH Clonidine HCl (Catapres Tab) 0.2 mg BID PO 04/09/16 21:00 05/09/16 20:59 04/12/16 07:21 0.2 MG Insulin Glargine (Lantus Solostar Pen) 8 unit BID SC 04/09/16 21:00 05/09/16 20:59 04/11/16 20:48 8 UNIT Vitamin B Complex/ Vit C/Folic Acid (Nephrocaps) 1 cap HS PO 04/10/16 21:00 05/10/16 20:59 04/11/16 19:59 1 CAP Heparin Sodium (Porcine) 5000 unit 5,000 unit Q12H SQ 04/11/16 21:00 05/11/16 20:59 04/11/16 20:49 5,000 UNIT Methylprednisolone Sodium Succinate/ Syringe (Solu-Medrol IV/ Syringe) 0.64 ml @ 1.5 mls/min Q8 IV 04/11/16 15:00 05/11/16 14:59 04/12/16 06:05 1.5 MLS/MIN Albuterol/ Ipratropium (Duoneb) 3 ml QIDR PRN INH 04/11/16 16:00 05/11/16 15:59 Heparin Sodium (Porcine) 400 unit 400 unit Q1H IV 04/12/16 08:00 04/12/16 10:01 Epoetin Bradly/ Syringe (Procrit Inj/ Syringe) 0.6 ml @ 1 mls/min TODAY@0800 IV. 04/12/16 08:00 04/12/16 16:00 Last 24 Hours Test 04/11/16 09:25 04/11/16 11:07 04/11/16 16:19 04/11/16 20:27 White Blood Count 9.91 K/uL Red Blood Count 2.43 M/uL Hemoglobin 7.8 g/dL Hematocrit 24.5 % Mean Corpuscular Volume 100.8 fL Mean Corpuscular Hemoglobin 32.1 pg Mean Corpuscular Hemoglobin Concent 31.8 g/dl Platelet Count 229 K/uL Mean Platelet Volume 8.7 fL RDW Standard Deviation 62.9 fL RDW Coefficient of Variation 17.5 % Neutrophils % (Manual) 85.9 % Lymphocytes % (Manual) 7.9 % Monocytes % (Manual) 1.8 % Eosinophils % (Manual) 3.5 % Myelocytes % 0.9 % Neutrophils # (Manual) 8.51 K/uL Total Absolute Neutrophils 8.51 K/uL Lymphocytes # (Manual) 0.78 K/uL Total Absolute Lymphocytes 0.78 K/uL Monocytes # (Manual) 0.18 K/uL Eosinophils # (Manual) 0.35 K/uL Myelocytes # 0.09 K/uL Red Blood Cell Morphology Unremarkable Activated Partial Thromboplast Time 28.4 SECONDS Partial Thromboplastin Ratio 1.1 Sodium Level 139 mmol/L Potassium Level 3.8 mmol/L Chloride Level 101 mmol/L Carbon Dioxide Level 29 mmol/L Anion Gap 9.0 mmol/L Blood Urea Nitrogen 19 mg/dl Creatinine 5.10 mg/dl Est Creatinine Clear Calc Drug Dose 7.9 ml/min Estimated GFR () 8.2 Estimated GFR (Non- 7.1 BUN/Creatinine Ratio 3.8 Random Glucose 207 mg/dl Calcium Level 8.6 mg/dl Bedside Glucose 223 mg/dl 144 mg/dl 233 mg/dl Test 04/12/16 05:10 04/12/16 06:41 White Blood Count 9.98 K/uL Red Blood Count 2.62 M/uL Hemoglobin 8.4 g/dL Hematocrit 25.8 % Mean Corpuscular Volume 98.5 fL Mean Corpuscular Hemoglobin 32.1 pg Mean Corpuscular Hemoglobin Concent 32.6 g/dl Platelet Count 234 K/uL Mean Platelet Volume 9.0 fL Neutrophils (%) (Auto) 91.7 % Lymphocytes (%) (Auto) 5.0 % Monocytes (%) (Auto) 1.7 % Eosinophils (%) (Auto) 0.1 % Basophils (%) (Auto) 0.2 % Neutrophils # (Auto) 9.15 K/uL Lymphocytes # (Auto) 0.50 K/uL Monocytes # (Auto) 0.17 K/uL Eosinophils # (Auto) 0.01 K/uL Basophils # (Auto) 0.02 K/uL RDW Standard Deviation 66.3 fL RDW Coefficient of Variation 18.9 % Immature Granulocyte % (Auto) 1.3 % Immature Granulocyte # (Auto) 0.13 K/uL Nucleated RBC Absolute Count (auto) 0.02 K/uL Nucleated Red Blood Cells % 0.2 % Red Blood Cell Morphology Unremarkable Activated Partial Thromboplast Time 26.0 SECONDS Partial Thromboplastin Ratio 1.0 Sodium Level 138 mmol/L Potassium Level 4.7 mmol/L Chloride Level 100 mmol/L Carbon Dioxide Level 23 mmol/L Anion Gap 15.0 mmol/L Blood Urea Nitrogen 29 mg/dl Creatinine 6.30 mg/dl Est Creatinine Clear Calc Drug Dose 6.4 ml/min Estimated GFR () 6.3 Estimated GFR (Non- 5.5 BUN/Creatinine Ratio 4.6 Random Glucose 234 mg/dl Calcium Level 8.7 mg/dl Bedside Glucose 231 mg/dl Assessment & Plan 85 y/o F w/ ESRD on MWF HD, dementia, DM, solitary kidney, CAD, a fib, PVD admitted with AF and pneumonia ESRD on HD w/ relative hypotension Her blood pressure on the lower side; she has some mild fluid overload but is not likely to tolerate aggressive UF; ? if behavioral issues will limit dialysis in this for pt unfamiliar environment though they did not on 04/10 -gentle HD today in dialysis unit on 2K bath, up to 1.5L UF as bp tolerates -next hd tentatively for 04/14 or as clinical needs dictate -daily bmp pls -note not on binders here though is as outpt - phos not elevated here; cont nephrovite HS <>relative hypotension which will limit ability to remove fluid w/ HD > I will d /c nitro paste as she has had no chest pain and minimal troponin elevation was trending down Anemia of esrd -10 k epo w/ HD; does not need po iron -had 1 unit pRBC 04/11 PNA on cefepime; lactate wnl; vanco held; more hypoxic now than sat a fib -low threshold to check TSH if indicated; per granddaughter who is a nurse on A fib is not a new dx. Appreciate consult; will follow with you.
--- NOTE | 2016-04-12 08:35 | DIAGNOSTIC IMAGING REPORT ---
TWO VIEW CHEST CLINICAL HISTORY: Follow-up pneumonia. FINDINGS: PA and lateral chest radiographs are compared to study dated 04/09/2016. The patient is status post midline sternotomy. The heart is enlarged and there is atherosclerotic calcification of the thoracic aorta. There are small pleural effusions with bibasilar airspace opacities. Diffuse interstitial thickening has not significantly changed. There is no pneumothorax. The skeletal structures are osteopenic. The bony thorax appears intact. IMPRESSION: 1. Cardiomegaly with findings suggestive of mild congestive failure. This is similar in appearance to the 04/09/2016 examination. 2. Small pleural effusions with bibasilar airspace opacities. This likely represents atelectasis. Correlate clinically for evidence of superimposed pneumonia. Electronically signed by: Zhao Sarmiento M.D. 04/12/2016 8:34 AM Dictated Date/Time: 04/12/2016 8:32 AM
[2016-04-12] MEDS ORDERED: NURSING VERBAL MED ORDER ONE (08:45)
[2016-04-12] MEDS ORDERED: INSULIN GLARGINE SOLOSTAR 100 UNITS/ML 3 ML PEN SC SCH (09:00)
[2016-04-12 09:42] LABS: HEPATITIS B AB NEG
[2016-04-12] MEDS: HEPARIN SOD 5000 UNIT/0.5 ML CARP SQ SCH ×2 (13:41→20:58)
--- NOTE | 2016-04-12 14:14 | Pharmacy Progress Note ---
Glycemic Control: Progress Nt Date of Service Apr 12, 2016. Scope Glycemic Pharmacist consulted by Dr Garza on 04/09/16 for glycemic control and to write orders per [facility] inpatient glycemic control protocol. Objective Accuchecks BSG (last 24hrs): Test 04/11/16 16:19 04/11/16 20:27 04/12/16 05:10 04/12/16 06:41 Bedside Glucose 144 mg/dl (70-90) 233 mg/dl (70-90) 231 mg/dl (70-90) Random Glucose 234 mg/dl (70-99) Test 04/12/16 13:09 Bedside Glucose 186 mg/dl (70-90) Laboratory Data (last 24hrs) Test 04/12/16 05:10 Anion Gap 15.0 mmol/L BUN/Creatinine Ratio 4.6 Blood Urea Nitrogen 29 mg/dl Creatinine 6.30 mg/dl Potassium Level 4.7 mmol/L Sodium Level 138 mmol/L White Blood Count 9.98 K/uL Red Blood Count 2.62 M/uL Hemoglobin 8.4 g/dL Hematocrit 25.8 % Mean Corpuscular Volume 98.5 fL Mean Corpuscular Hemoglobin 32.1 pg Mean Corpuscular Hemoglobin Concent 32.6 g/dl Platelet Count 234 K/uL Mean Platelet Volume 9.0 fL Neutrophils (%) (Auto) 91.7 % Lymphocytes (%) (Auto) 5.0 % Monocytes (%) (Auto) 1.7 % Eosinophils (%) (Auto) 0.1 % Basophils (%) (Auto) 0.2 % Neutrophils # (Auto) 9.15 K/uL Lymphocytes # (Auto) 0.50 K/uL Monocytes # (Auto) 0.17 K/uL Eosinophils # (Auto) 0.01 K/uL Basophils # (Auto) 0.02 K/uL HbA1c: Test 04/09/16 17:42 Hemoglobin A1c 8.0 %(4.5-5.6) H Recent Pertinent Medications Outpatient Anti-diabetic Regimen: * NovoLog /30 * 16 units SC q AM * 10 units q PM * A1c = 8.0 % on 04/09/16 The patient is currently receiving: * Basal insulin: Lantus 8 units every 12 hours - 1/2 dose for BSG < 120 mg/dL * Correctional Insulin: NovoLog Correction per scale AC+HS+02 Goal Range: Low 120 mg/dL - High 160 mg/dL Correction Factor: 35 mg/dL/unit * Prandial insulin: Per carb ratio of 1 unit per 12 grams CHO consumed Risk Factors for Insulin Resistance: * Steroids: methylprednisolone 40 mg IV q8h * Infection: PNA - on cefepime daily * Diet: T2DM Assessment & Plan ASSESSMENT: 04/11/16 * 85 yo F with hypoxemia 2nd PNA - on cefepime. * Hx ESRD, chronic outpatient HD. Patient was last dialyzed 04/10. * BSG's trending up slightly today, possibly due to decreased insulin sensitivity as patient is not being dialyzed today. Furthermore, patient is starting steroids which is likely to increase insulin resistance * Will tighten carb ratio as this is best to manage steroid-induced hyperglycemia * Will also tighten correction factor as BSG's were increasing prior to initiation of steroids * Will keep Lantus the same as this is already > 50% of her total daily insulin dose yesterday * Will add in overnight BSG check to provide additional insulin, if necessary 04/12/16 * Jazz received 23 units of insulin on 04/11 with only 1 of 4 BSGs being within goal range * will increase basal insulin at this time to help gain better control * Current regimen is slightly weighted toward basal insulin, however this is similar to home regimen * further "tighten" correction factor and carb ratio while on around the clock steroids - will help even out ratio * lower goal range to 100-140mg/dL * HD today * post-HD BSG 186mg/dL - may falsely represent control post dialysis secondary to patient re-equilibrating * A1c - difficult to interpret in HD patient * will not add to discharge instructions PLAN FOR INPATIENT GLYCEMIC CONTROL: * Increase Lantus to 10 units SQ BID - 1/2 dose for BSG < 120 mg/dL * Correctional Insulin with NOVOLOG per scale AC+HS * Lower goal range to Low 100 mg/dL - High 140 mg/dL * Tighten correction Factor to 30 mg/dL/unit * Tighten carb ratio to 1 unit per 10 grams CHO consumed RECOMMENDATION FOR DISCHARGE: * Resume home NovoLog 70/30 at discharge * Follow up with outpatient providers * Please note that the plan above was derived based on current level of insulin resistance and hospital stress. These recommendations are appropriate for inpatient admission only. Plan of care upon discharge will need to be reassessed to avoid potential outpatient hypo/hyperglycemia. Thank you.
--- NOTE | 2016-04-12 17:13 | Hospitalist Progress Note ---
Hospitalist Progress Note Date of Service Apr 12, 2016. Subjective Pt evaluation today including: conversation w/ patient, physical exam, chart review, lab review, review of studies, review of inpatient medication list Patient denies any chest pain or SOB States she feels ok Tolerated dialysis today well Constitutional: No fever Eyes: No worsening of vision ENT: No hearing loss Respiratory: No cough, No shortness of breath Cardiovascular: No chest pain Abdomen: No constipation, No diarrhea, No pain, No vomiting Musculoskeletal: No joint pain Female : No dysuria Neurologic: No memory loss Psychiatric: No depression symptoms Medications Current Inpatient Medications Medications (Trade) Dose Ordered Sig/Ivis Route Start Time Stop Time Status Last Admin Dose Admin Insulin Aspart (novoLOG ASPART) SLIDING SCALE G... ACHS SC 04/09/16 21:00 05/09/16 20:59 04/12/16 13:40 6 UNITS Carvedilol (Coreg Tab) 12.5 mg BID PO 04/09/16 21:00 05/09/16 20:59 04/12/16 07:21 12.5 MG Levothyroxine Sodium (Synthroid Tab) 100 mcg DAILYBB PO 04/10/16 06:00 05/10/16 05:59 04/12/16 06:05 100 MCG Pantoprazole Sodium (Protonix Tab) 40 mg QAM PO 04/10/16 09:00 05/10/16 08:59 04/12/16 07:21 40 MG Sertraline HCl (Zoloft Tab) 150 mg QAM PO 04/10/16 09:00 05/10/16 08:59 04/12/16 07:21 150 MG Ondansetron HCl 4 mg 4 mg Q6H PRN IV 04/09/16 17:15 05/09/16 17:14 04/11/16 08:39 4 MG Cefepime HCl/ Dextrose (Maxipime IV/D5 100ml) 111.3 ml @ 200 mls/hr Q24H IV 04/09/16 20:00 04/16/16 19:59 04/11/16 19:58 200 MLS/HR Acetaminophen (Tylenol Tab) 650 mg Q4H PRN PO 04/09/16 17:15 05/09/16 17:14 Miscellaneous Information (Consult Glycemic Management Pharmacy) 1 ea UD PRN N/A 04/09/16 18:58 05/09/16 18:57 Artificial Tears (Artificial Tears) 1 drops Q3HWA PRN OP 04/09/16 18:00 05/09/16 17:59 Glucose (Glucose 40% Gel) 15-30 GRAMS 15 GRAMS... UD PRN PO 04/09/16 19:00 05/09/16 18:59 Glucose (Glucose Chew Tab) 4-8 Tablets 4 Tabl... UD PRN PO 04/09/16 19:00 05/09/16 18:59 Dextrose (Dextrose 50% 50ML Syringe) 25-50ML OF 50% DW IV FOR... UD PRN IV 04/09/16 19:00 05/09/16 18:59 Glucagon (Glucagon Inj) 1 mg UD PRN SQ 04/09/16 19:00 05/09/16 18:59 Clonidine HCl (Catapres Tab) 0.2 mg BID PO 04/09/16 21:00 05/09/16 20:59 04/12/16 07:21 0.2 MG Vitamin B Complex/ Vit C/Folic Acid (Nephrocaps) 1 cap HS PO 04/10/16 21:00 05/10/16 20:59 04/11/16 19:59 1 CAP Heparin Sodium (Porcine) 5000 unit 5,000 unit Q12H SQ 04/11/16 21:00 05/11/16 20:59 04/12/16 13:41 5,000 UNIT Methylprednisolone Sodium Succinate/ Syringe (Solu-Medrol IV/ Syringe) 0.64 ml @ 1.5 mls/min Q8 IV 04/11/16 15:00 05/11/16 14:59 04/12/16 13:41 1.5 MLS/MIN Albuterol/ Ipratropium (Duoneb) 3 ml QIDR PRN INH 04/11/16 16:00 05/11/16 15:59 Insulin Glargine (Lantus Solostar Pen) 10 unit BID SC 04/12/16 21:00 05/12/16 20:59 Objective Vital Signs Date Time Temp Pulse Resp B/P Pulse Ox O2 Delivery O2 Flow Rate FiO2 04/12/16 16:13 36.9 77 20 124/59 96 Room Air 04/12/16 16:05 92 Room Air 04/12/16 13:19 36.4 74 18 135/57 98 Nasal Cannula 2.0 04/12/16 12:55 83 Room Air 04/12/16 12:45 36.7 67 102/47 04/12/16 12:31 72 124/52 04/12/16 12:15 65 115/54 04/12/16 12:00 70 99/50 04/12/16 11:45 72 93/55 04/12/16 11:30 68 109/52 04/12/16 11:15 65 112/54 04/12/16 11:00 67 127/53 04/12/16 10:45 56 120/56 04/12/16 10:30 65 119/65 04/12/16 10:15 58 115/59 04/12/16 10:00 51 115/48 04/12/16 09:45 72 117/54 04/12/16 09:30 67 117/41 04/12/16 09:15 76 109/59 04/12/16 09:00 48 89/73 04/12/16 08:45 36.6 49 109/51 04/12/16 08:01 83 Room Air 04/12/16 07:45 36.6 66 18 101/49 91 Nasal Cannula 2.0 04/12/16 04:46 36.9 60 17 98/52 96 Nasal Cannula 2.0 04/12/16 04:00 Nasal Cannula 2.0 04/12/16 00:00 Nasal Cannula 2.0 04/11/16 20:00 Nasal Cannula 2.0 04/11/16 19:36 36.9 68 97 114/52 97 Nasal Cannula 3.0 04/11/16 19:00 36.9 68 18 114/52 97 2.0 04/11/16 18:30 36.8 66 18 122/67 98 2.0 04/11/16 18:00 36.7 67 18 122/69 68 2.0 04/11/16 17:45 36.7 66 18 122/68 97 2.0 04/11/16 17:30 36.7 68 18 128/66 96 2.0 04/11/16 17:15 36.7 66 18 136/84 96 2.0 04/11/16 17:00 36.7 66 18 116/47 96 2.0 Physical Exam General Appearance: WD/WN, no apparent distress Eyes: normal inspection ENT: normal ENT inspection Neck: supple Respiratory/Chest: chest non-tender, + crackles Cardiovascular: regular rate, rhythm, no edema Abdomen: normal bowel sounds, non tender, soft Extremities: normal range of motion, non-tender 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, no motor/sensory deficits, alert, + disoriented Skin: normal color, warm/dry Lymphatic: no adenopathy Laboratory Results Last 24 Hours Test 04/11/16 20:27 04/12/16 05:10 04/12/16 06:41 04/12/16 13:09 Bedside Glucose 233 mg/dl 231 mg/dl 186 mg/dl White Blood Count 9.98 K/uL Red Blood Count 2.62 M/uL Hemoglobin 8.4 g/dL Hematocrit 25.8 % Mean Corpuscular Volume 98.5 fL Mean Corpuscular Hemoglobin 32.1 pg Mean Corpuscular Hemoglobin Concent 32.6 g/dl Platelet Count 234 K/uL Mean Platelet Volume 9.0 fL Neutrophils (%) (Auto) 91.7 % Lymphocytes (%) (Auto) 5.0 % Monocytes (%) (Auto) 1.7 % Eosinophils (%) (Auto) 0.1 % Basophils (%) (Auto) 0.2 % Neutrophils # (Auto) 9.15 K/uL Lymphocytes # (Auto) 0.50 K/uL Monocytes # (Auto) 0.17 K/uL Eosinophils # (Auto) 0.01 K/uL Basophils # (Auto) 0.02 K/uL RDW Standard Deviation 66.3 fL RDW Coefficient of Variation 18.9 % Immature Granulocyte % (Auto) 1.3 % Immature Granulocyte # (Auto) 0.13 K/uL Nucleated RBC Absolute Count (auto) 0.02 K/uL Nucleated Red Blood Cells % 0.2 % Red Blood Cell Morphology Unremarkable Activated Partial Thromboplast Time 26.0 SECONDS Partial Thromboplastin Ratio 1.0 Sodium Level 138 mmol/L Potassium Level 4.7 mmol/L Chloride Level 100 mmol/L Carbon Dioxide Level 23 mmol/L Anion Gap 15.0 mmol/L Blood Urea Nitrogen 29 mg/dl Creatinine 6.30 mg/dl Est Creatinine Clear Calc Drug Dose 6.4 ml/min Estimated GFR () 6.3 Estimated GFR (Non- 5.5 BUN/Creatinine Ratio 4.6 Random Glucose 234 mg/dl Calcium Level 8.7 mg/dl Hepatitis B Surface Antigen NEG Hepatitis B Surface Antibody NEG Test 04/12/16 15:57 Bedside Glucose 264 mg/dl Assessment and Plan HCAP - seems to be doing well on cefepime - continue cefepime - check CBC in am - will consider narrowing to Levaquin in am if asymptomatic Hypoxic Respiratory Failure - resolved Vascular Dementia - appears to baseline mental status h/o CAD/PVD - ASA/Coreg HTN - cont clonidine Hypothyroidism - cont Synthroid Atrial fibrillation - cont rate control with coreg - not a candidate for anticoagulation due to falls Decreased appetite - nutrition consult - will consider appetite stimulant FULL CODE
[2016-04-12] MEDS: CEFEPIME IV 1,000 MG in DEXTROSE 5% 100ML 100 ML IV SCH (20:00)
[2016-04-12] MEDS: NEPHROCAPS PO SCH (20:54)
[2016-04-12] MEDS: INSULIN GLARGINE SOLOSTAR 100 UNITS/ML 3 ML PEN SC SCH (20:59)
[2016-04-13] VITALS (8 sets, daily range): BP systolic 129–183; BP diastolic 60–77; PULSE 56–88; TEMP 36.5–37.2; O2SAT 91–94
[2016-04-13 04:55] LABS: HEMATOCRIT 29.1 % (37-47); MEAN PLATELET VOLUME 8.6 fL (7.4-10.4); PLATELET COUNT 238 K/uL (130-400); RED BLOOD COUNT 2.94 M/uL (4.2-5.4); WHITE BLOOD COUNT 14.54 K/uL (4.8-10.8)
[2016-04-13 05:13] LABS: PARTIAL THROMBOPLASTIN RATIO 0.9
[2016-04-13 05:16] LABS: BUN/CREATININE RATIO 4.8 (10-20); CALCIUM 8.4 mg/dl (8.5-10.1); CREATININE 4.4 mg/dl (0.60-1.20); POTASSIUM 3.8 mmol/L (3.5-5.1)
[2016-04-13 05:17] LABS: MEAN CORPUSCULAR HGB CONC 32.3 g/dl (32-36)
[2016-04-13] MEDS: LEVOTHYROXINE 100 MCG TAB PO SCH (05:24)
[2016-04-13] MEDS: METHYLPREDNISOLONE IV 40 MG in SYRINGE 0 ML IV SCH ×3 (05:24→21:00)
[2016-04-13] MEDS: INSULIN ASPART 100 UNITS/ML 3 ML PEN SC SCH ×4 (07:00→20:50)
[2016-04-13] MEDS: INSULIN GLARGINE SOLOSTAR 100 UNITS/ML 3 ML PEN SC SCH ×2 (07:53→20:50)
[2016-04-13] MEDS: CARVEDILOL 12.5 MG TAB PO SCH ×2 (07:53→20:16)
[2016-04-13] MEDS: CLONIDINE HCL 0.1 MG TAB PO SCH ×2 (07:53→20:16)
[2016-04-13] MEDS: HEPARIN SOD 5000 UNIT/0.5 ML CARP SQ SCH ×2 (07:54→21:00)
[2016-04-13] MEDS: PANTOprazole SOD 40 MG TAB PO SCH (07:54)
[2016-04-13] MEDS: SERTRALINE HCL 100 MG TAB PO SCH (07:54)
--- NOTE | 2016-04-13 14:24 | Pharmacy Progress Note ---
Glycemic Control: Progress Nt Date of Service Apr 13, 2016. Scope Glycemic Pharmacist consulted by Dr Garza on 04/09/16 for glycemic control and to write orders per [facility] inpatient glycemic control protocol. Objective Accuchecks BSG (last 24hrs): Test 04/12/16 15:57 04/12/16 20:18 04/13/16 04:49 04/13/16 06:33 Bedside Glucose 264 mg/dl (70-90) 285 mg/dl (70-90) 220 mg/dl (70-90) Random Glucose 230 mg/dl (70-99) Test 04/13/16 11:15 Bedside Glucose 252 mg/dl (70-90) Laboratory Data (last 24hrs) Test 04/13/16 04:49 Anion Gap 8.0 mmol/L BUN/Creatinine Ratio 4.8 Blood Urea Nitrogen 21 mg/dl Creatinine 4.40 mg/dl Potassium Level 3.8 mmol/L Sodium Level 138 mmol/L White Blood Count 14.54 K/uL HbA1c: Test 04/09/16 17:42 Hemoglobin A1c 8.0 %(4.5-5.6) H Recent Pertinent Medications Outpatient Anti-diabetic Regimen: * NovoLog * 16 units SC q AM * 10 units q PM * A1c = 8.0 % on 04/09/16 The patient is currently receiving: * Basal insulin: Lantus 10 units every 12 hours - 1/2 dose for BSG < 120 mg/dL * Correctional Insulin: NovoLog Correction per scale AC+HS Goal Range: Low 100 mg/dL - High 140 mg/dL Correction Factor: 30 mg/dL/unit * Prandial insulin: Per carb ratio of 1 unit per 10 grams CHO consumed Risk Factors for Insulin Resistance: * Steroids: methylprednisolone 40 mg IV q8h * Infection: PNA - on cefepime IV daily --> levofloxacin PO q2days x 2 doses to complete course of ABX * Diet: T2DM --> appetite variable and poor. RD consulted. Assessment & Plan ASSESSMENT: 04/11/16 * 85 yo F with hypoxemia 2nd PNA - on cefepime. * Hx ESRD, chronic outpatient HD. Patient was last dialyzed 04/10. * BSG's trending up slightly today, possibly due to decreased insulin sensitivity as patient is not being dialyzed today. Furthermore, patient is starting steroids which is likely to increase insulin resistance * Will tighten carb ratio as this is best to manage steroid-induced hyperglycemia * Will also tighten correction factor as BSG's were increasing prior to initiation of steroids * Will keep Lantus the same as this is already > 50% of her total daily insulin dose yesterday * Will add in overnight BSG check to provide additional insulin, if necessary 04/12/16 * Jazz received 23 units of insulin on 04/11 with only 1 of 4 BSGs being within goal range * will increase basal insulin at this time to help gain better control * Current regimen is slightly weighted toward basal insulin, however this is similar to home regimen * further "tighten" correction factor and carb ratio while on around the clock steroids - will help even out ratio * lower goal range to 100-140mg/dL * HD today * post-HD BSG 186mg/dL - may falsely represent control post dialysis secondary to patient re-equilibrating * A1c - difficult to interpret in HD patient * will not add to discharge instructions 04/13/16 * Jazz received 40 units of insulin on 04/12 with all blood sugars above goal range. * Planned to continue with increased Lantus dose, however the patient refused both AM Lantus as well as AM NovoLog * Appetite continues to be variable and poor - RD consulted * continue with current regimen and titrate insulins accordingly * Spoke with provider regarding IV steroids - likely for decrease in dose today * will not decrease insulin doses at this time since she remains hyperglycemia , however will continue to monitor need for insulin titration with each step down in steroid therapy * Cefepime IV --> Levofloxacin PO x 2 doses to complete 7 days of ABX for HCAP PLAN FOR INPATIENT GLYCEMIC CONTROL: * Lantus to 10 units SQ BID - 1/2 dose for BSG < 120 mg/dL * Correctional Insulin with NOVOLOG per scale AC+HS * Goal range to Low 100 mg/dL - High 140 mg/dL * Correction Factor to 30 mg/dL/unit * Carb ratio to 1 unit per 10 grams CHO consumed RECOMMENDATION FOR DISCHARGE: * Resume home NovoLog 70/30 at discharge * Follow up with outpatient providers * Please note that the plan above was derived based on current level of insulin resistance and hospital stress. These recommendations are appropriate for inpatient admission only. Plan of care upon discharge will need to be reassessed to avoid potential outpatient hypo/hyperglycemia. Thank you.
--- NOTE | 2016-04-13 16:03 | Hospitalist Progress Note ---
Hospitalist Progress Note Date of Service Apr 13, 2016. Subjective Pt evaluation today including: conversation w/ patient, physical exam, chart review, lab review, review of studies, review of inpatient medication list Patient had no acute issues overnight Denies any SOB, chest pain or fevers Constitutional: No fever Eyes: No worsening of vision ENT: No hearing loss Respiratory: No cough Cardiovascular: No chest pain Abdomen: No pain Musculoskeletal: No joint pain Female : No dysuria Neurologic: + memory loss, No numbness/tingling, No weakness Psychiatric: No depression symptoms Medications Current Inpatient Medications Medications (Trade) Dose Ordered Sig/Ivis Route Start Time Stop Time Status Last Admin Dose Admin Insulin Aspart (novoLOG ASPART) SLIDING SCALE G... ACHS SC 04/09/16 21:00 05/09/16 20:59 04/13/16 12:00 4 UNITS Carvedilol (Coreg Tab) 12.5 mg BID PO 04/09/16 21:00 05/09/16 20:59 04/12/16 20:55 12.5 MG Levothyroxine Sodium (Synthroid Tab) 100 mcg DAILYBB PO 04/10/16 06:00 05/10/16 05:59 04/13/16 05:24 100 MCG Pantoprazole Sodium (Protonix Tab) 40 mg QAM PO 04/10/16 09:00 05/10/16 08:59 04/12/16 07:21 40 MG Sertraline HCl (Zoloft Tab) 150 mg QAM PO 04/10/16 09:00 05/10/16 08:59 04/12/16 07:21 150 MG Ondansetron HCl (Zofran Inj) 4 mg Q6H PRN IV 04/09/16 17:15 05/09/16 17:14 04/11/16 08:39 4 MG Acetaminophen (Tylenol Tab) 650 mg Q4H PRN PO 04/09/16 17:15 05/09/16 17:14 Miscellaneous Information (Consult Glycemic Management Pharmacy) 1 ea UD PRN N/A 04/09/16 18:58 05/09/16 18:57 Artificial Tears (Artificial Tears) 1 drops Q3HWA PRN OP 04/09/16 18:00 05/09/16 17:59 Glucose (Glucose 40% Gel) 15-30 GRAMS 15 GRAMS... UD PRN PO 04/09/16 19:00 05/09/16 18:59 Glucose (Glucose Chew Tab) 4-8 Tablets 4 Tabl... UD PRN PO 04/09/16 19:00 05/09/16 18:59 Dextrose (Dextrose 50% 50ML Syringe) 25-50ML OF 50% DW IV FOR... UD PRN IV 04/09/16 19:00 05/09/16 18:59 Glucagon (Glucagon Inj) 1 mg UD PRN SQ 04/09/16 19:00 05/09/16 18:59 Clonidine HCl (Catapres Tab) 0.2 mg BID PO 04/09/16 21:00 05/09/16 20:59 04/12/16 20:55 0.2 MG Vitamin B Complex/ Vit C/Folic Acid (Nephrocaps) 1 cap HS PO 04/10/16 21:00 05/10/16 20:59 04/12/16 20:54 1 CAP Heparin Sodium (Porcine) 5000 unit 5,000 unit Q12H SQ 04/11/16 21:00 05/11/16 20:59 04/12/16 20:58 5,000 UNIT Methylprednisolone Sodium Succinate/ Syringe (Solu-Medrol IV/ Syringe) 0.64 ml @ 1.5 mls/min Q8 IV 04/11/16 15:00 05/11/16 14:59 04/13/16 13:19 1.5 MLS/MIN Albuterol/ Ipratropium (Duoneb) 3 ml QIDR PRN INH 04/11/16 16:00 05/11/16 15:59 Insulin Glargine (Lantus Solostar Pen) 10 unit BID SC 04/12/16 21:00 05/12/16 20:59 04/12/16 20:59 10 UNIT Levofloxacin (Levaquin Tab) 750 mg Q2D@2000 PO 04/13/16 20:00 04/15/16 20:01 Objective Vital Signs Date Time Temp Pulse Resp B/P Pulse Ox O2 Delivery O2 Flow Rate FiO2 04/13/16 07:27 37.0 56 18 147/60 91 Room Air 04/13/16 04:00 Room Air 04/13/16 04:00 36.7 68 20 134/76 92 Room Air 04/13/16 00:05 Room Air 04/13/16 00:00 36.9 88 20 129/69 92 Room Air 04/12/16 20:10 90 Room Air 04/12/16 19:49 36.9 70 18 165/79 90 Room Air 04/12/16 16:13 36.9 77 20 124/59 96 Room Air 04/12/16 16:05 92 Room Air 04/12/16 13:19 36.4 74 18 135/57 98 Nasal Cannula 2.0 04/12/16 12:55 83 Room Air 04/12/16 12:45 36.7 67 102/47 04/12/16 12:31 72 124/52 04/12/16 12:15 65 115/54 04/12/16 12:00 70 99/50 04/12/16 11:45 72 93/55 04/12/16 11:30 68 109/52 04/12/16 11:15 65 112/54 04/12/16 11:00 67 127/53 04/12/16 10:45 56 120/56 04/12/16 10:30 65 119/65 04/12/16 10:15 58 115/59 04/12/16 10:00 51 115/48 04/12/16 09:45 72 117/54 04/12/16 09:30 67 117/41 04/12/16 09:15 76 109/59 04/12/16 09:00 48 89/73 04/12/16 08:45 36.6 49 109/51 04/12/16 08:01 83 Room Air Physical Exam General Appearance: WD/WN, no apparent distress Eyes: normal inspection ENT: normal ENT inspection Neck: supple Respiratory/Chest: chest non-tender, lungs clear Cardiovascular: regular rate, rhythm, no edema Abdomen: normal bowel sounds, non tender, soft Extremities: normal range of motion, non-tender 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, no motor/sensory deficits, alert, oriented x 3 Skin: normal color, warm/dry, no rash Laboratory Results Last 24 Hours Test 04/12/16 13:09 04/12/16 15:57 04/12/16 20:18 04/13/16 04:49 Bedside Glucose 186 mg/dl 264 mg/dl 285 mg/dl White Blood Count 14.54 K/uL Red Blood Count 2.94 M/uL Hemoglobin 9.4 g/dL Hematocrit 29.1 % Mean Corpuscular Volume 99.0 fL Mean Corpuscular Hemoglobin 32.0 pg Mean Corpuscular Hemoglobin Concent 32.3 g/dl RDW Standard Deviation 65.7 fL RDW Coefficient of Variation 19.0 % Platelet Count 238 K/uL Mean Platelet Volume 8.6 fL Nucleated RBC Absolute Count (auto) 0.04 K/uL Nucleated Red Blood Cells % 0.3 % Activated Partial Thromboplast Time 23.2 SECONDS Partial Thromboplastin Ratio 0.9 Sodium Level 138 mmol/L Potassium Level 3.8 mmol/L Chloride Level 97 mmol/L Carbon Dioxide Level 33 mmol/L Anion Gap 8.0 mmol/L Blood Urea Nitrogen 21 mg/dl Creatinine 4.40 mg/dl Est Creatinine Clear Calc Drug Dose 9.2 ml/min Estimated GFR () 9.8 Estimated GFR (Non- 8.4 BUN/Creatinine Ratio 4.8 Random Glucose 230 mg/dl Calcium Level 8.4 mg/dl Test 04/13/16 06:33 Bedside Glucose 220 mg/dl Assessment and Plan HCAP - seems to be doing well on cefepime - d/c cefepime - check CBC in am - switch to Levaquin renal dose Leukocytosis - suspect 2/2 to steroids - check CBC in am - do not suspect worsening infection thus will narrow antibiotics to Levaquin ESRD HD m/w/f - HD yesterday - currently euvolemic Anemia - administered 1 u pRBC on . - HGB stable around 9 Hypoxic Respiratory Failure - resolved - check ambulatory oximetry Vascular Dementia - appears to baseline mental status h/o CAD/PVD - ASA/Coreg HTN - cont clonidine Hypothyroidism - cont Synthroid Atrial fibrillation - cont rate control with coreg - not a candidate for anticoagulation due to falls DMII - cont SSI - accuchecks Decreased appetite - nutrition consult - will consider appetite stimulant if no improvement FULL CODE
[2016-04-13] MEDS ORDERED: LEVOFLOXACIN 750 MG TAB PO SCH (20:00)
[2016-04-13] MEDS: NEPHROCAPS PO SCH (20:51)
[2016-04-14] VITALS (22 sets, daily range): BP systolic 100–180; BP diastolic 42–95; PULSE 55–100; TEMP 36.6–36.8; O2SAT 90–96; Ht 165.1 cm; Wt 67.1 kg
[2016-04-14] MEDS: ACETAMINOPHEN 325 MG TAB PO PRN ×2 (01:21→06:40)
[2016-04-14 05:24] LABS: HEMATOCRIT 31.8 % (37-47); MEAN CELL VOLUME 98.5 fL (80-100); MEAN CORPUSCULAR HEMOGLOBIN 31.9 pg (25-34); MEAN CORPUSCULAR HGB CONC 32.4 g/dl (32-36); MEAN PLATELET VOLUME 8.8 fL (7.4-10.4); PLATELET COUNT 310 K/uL (130-400); RED BLOOD COUNT 3.23 M/uL (4.2-5.4); WHITE BLOOD COUNT 15.78 K/uL (4.8-10.8)
[2016-04-14 05:34] LABS: PARTIAL THROMBOPLASTIN RATIO 0.9
[2016-04-14] MEDS: LEVOTHYROXINE 100 MCG TAB PO SCH (05:52)
[2016-04-14 06:23] LABS: BUN/CREATININE RATIO 5.7 (10-20); CALCIUM 8.5 mg/dl (8.5-10.1); CREATININE 5.7 mg/dl (0.60-1.20); POTASSIUM 3.4 mmol/L (3.5-5.1)
[2016-04-14] MEDS: METHYLPREDNISOLONE IV 40 MG in SYRINGE 0 ML IV SCH ×2 (07:45→08:47)
[2016-04-14] MEDS: SERTRALINE HCL 100 MG TAB PO SCH (07:52)
[2016-04-14] MEDS: CARVEDILOL 12.5 MG TAB PO SCH ×2 (07:53→20:39)
[2016-04-14] MEDS: PANTOprazole SOD 40 MG TAB PO SCH (07:54)
[2016-04-14] MEDS: CLONIDINE HCL 0.1 MG TAB PO SCH ×2 (07:54→20:39)
[2016-04-14] MEDS: INSULIN ASPART 100 UNITS/ML 3 ML PEN SC SCH ×4 (07:55→20:31)
[2016-04-14] MEDS ORDERED: HEPARIN SOD (PORCINE) 1000 UNIT/ML 10 ML VIAL IV SCH (08:00)
[2016-04-14] MEDS ORDERED: EPOETIN ALFA 10,000 UNITS/ML VIAL IV. ONE (08:00)
[2016-04-14] MEDS ORDERED: EPOETIN ALFA INJ 12,000 UNITS in SYRINGE 0 ML IV. SCH (08:00)
[2016-04-14] MEDS: HEPARIN SOD 5000 UNIT/0.5 ML CARP SQ SCH ×2 (09:00→20:32)
--- NOTE | 2016-04-14 10:19 | Dialysis Progress Note ---
Nephrology Dialysis Note Date of Service: Apr 14, 2016. Subjective still w/ poor appetite; denies dyspnea or chest pain; remains on 02nc; no issues on front desk monitor Objective Date Time Temp Pulse Resp B/P Pulse Ox O2 Delivery O2 Flow Rate FiO2 04/14/16 09:45 76 124/68 04/14/16 09:30 76 122/66 04/14/16 09:15 81 170/81 04/14/16 09:00 95 178/95 04/14/16 08:45 92 175/81 04/14/16 08:30 92 171/80 04/14/16 07:57 100 152/84 96 Nasal Cannula 2.0 04/14/16 07:30 Nasal Cannula 2.0 04/14/16 07:29 36.7 20 04/14/16 00:10 Nasal Cannula 2.0 04/13/16 23:02 36.7 66 16 131/61 94 Nasal Cannula 3.0 04/13/16 19:52 37.1 78 18 92 3.0 04/13/16 19:50 93 Nasal Cannula 2.0 04/13/16 19:50 36.5 88 16 183/73 93 Nasal Cannula 2.0 04/13/16 16:00 Room Air 04/13/16 15:25 37.1 78 18 153/63 92 3.0 04/13/16 12:00 Room Air 04/13/16 11:29 37.2 72 18 159/77 92 3.0 Physical Exam: General Appearance: WD/WN, no apparent distress, + pertinent finding (in bed on 02NC) Eyes: EOMI ENT: hearing grossly normal Neck: supple Respiratory/Chest: no respiratory distress, no accessory muscle use, + decreased breath sounds Cardiovascular: no edema, + irregularly irregular Abdomen: normal bowel sounds, non tender, soft, + pertinent finding (no hinton) Extremities: no pedal edema, + pertinent finding (avf + t/b R wrist) Neurologic/Psych: alert, normal mood/affect, + pertinent finding (poor recall) Skin: no jaundice, warm/dry, no rash Current Inpatient Medications Medications (Trade) Dose Ordered Sig/Ivis Route Start Time Stop Time Status Last Admin Dose Admin Insulin Aspart (novoLOG ASPART) SLIDING SCALE G... ACHS SC 04/09/16 21:00 05/09/16 20:59 1/31/17 20:50 1 UNITS Carvedilol (Coreg Tab) 12.5 mg BID PO 04/09/16 21:00 05/09/16 20:59 04/14/16 07:53 12.5 MG Levothyroxine Sodium (Synthroid Tab) 100 mcg DAILYBB PO 04/10/16 06:00 05/10/16 05:59 04/14/16 05:52 100 MCG Pantoprazole Sodium (Protonix Tab) 40 mg QAM PO 04/10/16 09:00 05/10/16 08:59 04/14/16 07:54 40 MG Sertraline HCl (Zoloft Tab) 150 mg QAM PO 04/10/16 09:00 05/10/16 08:59 04/14/16 07:52 150 MG Ondansetron HCl (Zofran Inj) 4 mg Q6H PRN IV 04/09/16 17:15 05/09/16 17:14 04/11/16 08:39 4 MG Acetaminophen (Tylenol Tab) 650 mg Q4H PRN PO 04/09/16 17:15 05/09/16 17:14 04/14/16 06:40 650 MG Miscellaneous Information (Consult Glycemic Management Pharmacy) 1 ea UD PRN N/A 04/09/16 18:58 05/09/16 18:57 Artificial Tears (Artificial Tears) 1 drops Q3HWA PRN OP 04/09/16 18:00 05/09/16 17:59 Glucose (Glucose 40% Gel) 15-30 GRAMS 15 GRAMS... UD PRN PO 04/09/16 19:00 05/09/16 18:59 Glucose (Glucose Chew Tab) 4-8 Tablets 4 Tabl... UD PRN PO 04/09/16 19:00 05/09/16 18:59 Dextrose (Dextrose 50% 50ML Syringe) 25-50ML OF 50% DW IV FOR... UD PRN IV 04/09/16 19:00 05/09/16 18:59 Glucagon (Glucagon Inj) 1 mg UD PRN SQ 04/09/16 19:00 05/09/16 18:59 Clonidine HCl (Catapres Tab) 0.2 mg BID PO 04/09/16 21:00 05/09/16 20:59 04/14/16 07:54 0.2 MG Vitamin B Complex/ Vit C/Folic Acid (Nephrocaps) 1 cap HS PO 04/10/16 21:00 05/10/16 20:59 04/13/16 20:51 1 CAP Heparin Sodium (Porcine) (Heparin Sq 5000 Unit/0.5ml) 5,000 unit Q12H SQ 04/11/16 21:00 05/11/16 20:59 04/12/16 20:58 5,000 UNIT Albuterol/ Ipratropium (Duoneb) 3 ml QIDR PRN INH 04/11/16 16:00 05/11/16 15:59 Levofloxacin (Levaquin Tab) 750 mg Q2D@2000 PO 04/13/16 20:00 04/15/16 20:01 04/13/16 20:05 750 MG Heparin Sodium (Porcine) 1000 unit 1,000 unit TODAY@0800 IV 04/14/16 08:00 04/14/16 16:00 Epoetin Bradly 25524 units/ Syringe 0.6 ml @ 1 mls/min TODAY@0800 IV. 04/14/16 08:00 04/14/16 16:00 Methylprednisolone Sodium Succinate/ Syringe (Solu-Medrol IV/ Syringe) 0.64 ml @ 1.5 mls/min DAILY IV 04/14/16 09:00 05/14/16 08:59 Last 24 Hours Test 04/13/16 11:15 04/13/16 16:08 04/13/16 20:38 04/14/16 05:15 Bedside Glucose 252 mg/dl 148 mg/dl 170 mg/dl White Blood Count 15.78 K/uL Red Blood Count 3.23 M/uL Hemoglobin 10.3 g/dL Hematocrit 31.8 % Mean Corpuscular Volume 98.5 fL Mean Corpuscular Hemoglobin 31.9 pg Mean Corpuscular Hemoglobin Concent 32.4 g/dl RDW Standard Deviation 64.4 fL RDW Coefficient of Variation 19.1 % Platelet Count 310 K/uL Mean Platelet Volume 8.8 fL Nucleated RBC Absolute Count (auto) 0.06 K/uL Nucleated Red Blood Cells % 0.4 % Activated Partial Thromboplast Time 23.8 SECONDS Partial Thromboplastin Ratio 0.9 Sodium Level 140 mmol/L Potassium Level 3.4 mmol/L Chloride Level 98 mmol/L Carbon Dioxide Level 29 mmol/L Anion Gap 13.0 mmol/L Blood Urea Nitrogen 32 mg/dl Creatinine 5.70 mg/dl Est Creatinine Clear Calc Drug Dose 7.0 ml/min Estimated GFR () 7.2 Estimated GFR (Non- 6.2 BUN/Creatinine Ratio 5.7 Random Glucose 63 mg/dl Calcium Level 8.5 mg/dl Test 04/14/16 07:10 Bedside Glucose 86 mg/dl Assessment & Plan 85 y/o F w/ ESRD on MWF HD, dementia, DM, solitary kidney, CAD, a fib, PVD admitted with AF and pneumonia ESRD on HD w/ relative hypotension Her blood pressure on the lower side; she has some mild fluid overload and HTN > will be a bit more aggressive w/ UF -HD today in dialysis unit on 3K bath, up to 2.5L UF as bp tolerates -next hd tentatively for 2/3 or as clinical needs dictate -daily bmp pls -note not on binders here though is as outpt - phos not elevated here; cont nephrovite HS Anemia of esrd -10 k epo w/ HD; does not need po iron -had 1 unit pRBC 04/11 PNA remains on steroids, 02nc, levaquin a fib -low threshold to check TSH if indicated; per granddaughter who is a nurse on A fib is not a new dx. Appreciate consult; will follow with you.
[2016-04-14] MEDS: HEPARIN SOD (PORCINE) 1000 UNIT/ML 10 ML VIAL IV SCH ×3 (14:12→14:15)
--- NOTE | 2016-04-14 15:11 | Pharmacy Progress Note ---
Glycemic Control: Progress Nt Date of Service Apr 14, 2016. Scope Glycemic Pharmacist consulted by Dr Garza on 04/09/16 for glycemic control and to write orders per [facility], located within [facility] inpatient glycemic control protocol. Objective Accuchecks BSG (last 24hrs): Test 04/13/16 16:08 04/13/16 20:38 04/14/16 05:15 04/14/16 07:10 Bedside Glucose 148 mg/dl (70-90) 170 mg/dl (70-90) 86 mg/dl (70-90) Random Glucose 63 mg/dl (70-99) Test 04/14/16 12:58 Bedside Glucose 121 mg/dl (70-90) Laboratory Data (last 24hrs) Test 04/14/16 05:15 Anion Gap 13.0 mmol/L BUN/Creatinine Ratio 5.7 Blood Urea Nitrogen 32 mg/dl Creatinine 5.70 mg/dl Potassium Level 3.4 mmol/L Sodium Level 140 mmol/L White Blood Count 15.78 K/uL HbA1c: Test 04/09/16 17:42 Hemoglobin A1c 8.0 % (4.5-5.6) H Recent Pertinent Medications Outpatient Anti-diabetic Regimen: * NovoLog 70/30 * 16 units SC q AM * 10 units q PM * A1c = 8.0 % on 04/09/16 The patient is currently receiving: * Basal insulin: Lantus 10 units given last night * Correctional Insulin: NovoLog Correction per scale AC+HS Goal Range: Low 100 mg/dL - High 140 mg/dL Correction Factor: 30 mg/dL/unit * Prandial insulin: Per carb ratio of 1 unit per 10 grams CHO consumed Risk Factors for Insulin Resistance: * Steroids * Infection * Diet Assessment & Plan ASSESSMENT: 04/11/16 * 85 yo F with hypoxemia 2nd PNA - on cefepime. * Hx ESRD, chronic outpatient HD. Patient was last dialyzed 04/10. * BSG's trending up slightly today, possibly due to decreased insulin sensitivity as patient is not being dialyzed today. Furthermore, patient is starting steroids which is likely to increase insulin resistance * Will tighten carb ratio as this is best to manage steroid-induced hyperglycemia * Will also tighten correction factor as BSG's were increasing prior to initiation of steroids * Will keep Lantus the same as this is already > 50% of her total daily insulin dose yesterday * Will add in overnight BSG check to provide additional insulin, if necessary 04/12/16 * Jazz received 23 units of insulin on 04/11 with only 1 of 4 BSGs being within goal range * will increase basal insulin at this time to help gain better control * Current regimen is slightly weighted toward basal insulin, however this is similar to home regimen * further "tighten" correction factor and carb ratio while on around the clock steroids - will help even out ratio * lower goal range to 100-140mg/dL * HD today * post-HD BSG 186mg/dL - may falsely represent control post dialysis secondary to patient re-equilibrating * A1c - difficult to interpret in HD patient * will not add to discharge instructions 04/13/16 * Jazz received 40 units of insulin on 04/12 with all blood sugars above goal range. * Planned to continue with increased Lantus dose, however the patient refused both AM Lantus as well as AM NovoLog * Appetite continues to be variable and poor - RD consulted * continue with current regimen and titrate insulins accordingly * Spoke with provider regarding IV steroids - likely for decrease in dose today * will not decrease insulin doses at this time since she remains hyperglycemia , however will continue to monitor need for insulin titration with each step down in steroid therapy * Cefepime IV --> Levofloxacin PO x 2 doses to complete 7 days of ABX for HCAP 04/14/16 * BSGs have trended down over the past 24 hours * She received 10 units of Lantus yesterday at bedtime and Fasting BSG 86 mg/dL * Lunch BSG also remains within goal range which is a change from yesterday * I hesitate to continue basal insulin today-->Give Lantus 8 units ONLY if BSG > 180 * Otherwise, no basal insulin and re-evaluate in the AM * Loosen Novolog coverage PLAN FOR INPATIENT GLYCEMIC CONTROL: * Lantus to 8 units if BSG >180 mg/dL- HOLD if BSG <180 * Correctional Insulin with NOVOLOG per scale AC+HS * Goal range to Low 100 mg/dL - High 140 mg/dL * Correction Factor to 35 mg/dL/unit * Carb ratio to 1 unit per 12 grams CHO consumed RECOMMENDATION FOR DISCHARGE: * Resume home NovoLog 70/30 at discharge * Follow up with outpatient providers Please note that the plan above was derived based on current level of insulin resistance and hospital stress. These recommendations are appropriate for inpatient admission only. Plan of care upon discharge will need to be reassessed to avoid potential outpatient hypo/hyperglycemia. Thank you.
--- NOTE | 2016-04-14 15:33 | Hospitalist Progress Note ---
Hospitalist Progress Note Date of Service Apr 14, 2016. Subjective Pt evaluation today including: conversation w/ patient, physical exam, chart review, lab review, review of studies, review of inpatient medication list Patient had no acute issues overnight States she is mildy SOB, denies any fever Constitutional: No fever Eyes: No worsening of vision ENT: No hearing loss Respiratory: + shortness of breath, No cough Cardiovascular: No chest pain Abdomen: No constipation, No pain, No vomiting Female : No dysuria Neurologic: No memory loss Psychiatric: No depression symptoms Medications Current Inpatient Medications Medications (Trade) Dose Ordered Sig/Ivis Route Start Time Stop Time Status Last Admin Dose Admin Insulin Aspart (novoLOG ASPART) SLIDING SCALE G... ACHS SC 04/09/16 21:00 05/09/16 20:59 04/13/16 20:50 1 UNITS Carvedilol (Coreg Tab) 12.5 mg BID PO 04/09/16 21:00 05/09/16 20:59 04/14/16 07:53 12.5 MG Levothyroxine Sodium (Synthroid Tab) 100 mcg DAILYBB PO 04/10/16 06:00 05/10/16 05:59 04/14/16 05:52 100 MCG Pantoprazole Sodium (Protonix Tab) 40 mg QAM PO 04/10/16 09:00 05/10/16 08:59 04/14/16 07:54 40 MG Sertraline HCl (Zoloft Tab) 150 mg QAM PO 04/10/16 09:00 05/10/16 08:59 04/14/16 07:52 150 MG Ondansetron HCl (Zofran Inj) 4 mg Q6H PRN IV 04/09/16 17:15 05/09/16 17:14 04/11/16 08:39 4 MG Acetaminophen (Tylenol Tab) 650 mg Q4H PRN PO 04/09/16 17:15 05/09/16 17:14 04/14/16 06:40 650 MG Miscellaneous Information (Consult Glycemic Management Pharmacy) 1 ea UD PRN N/A 04/09/16 18:58 05/09/16 18:57 Artificial Tears (Artificial Tears) 1 drops Q3HWA PRN OP 04/09/16 18:00 05/09/16 17:59 Glucose (Glucose 40% Gel) 15-30 GRAMS 15 GRAMS... UD PRN PO 04/09/16 19:00 05/09/16 18:59 Glucose (Glucose Chew Tab) 4-8 Tablets 4 Tabl... UD PRN PO 04/09/16 19:00 05/09/16 18:59 Dextrose (Dextrose 50% 50ML Syringe) 25-50ML OF 50% DW IV FOR... UD PRN IV 04/09/16 19:00 05/09/16 18:59 Glucagon (Glucagon Inj) 1 mg UD PRN SQ 04/09/16 19:00 05/09/16 18:59 Clonidine HCl (Catapres Tab) 0.2 mg BID PO 04/09/16 21:00 05/09/16 20:59 04/14/16 07:54 0.2 MG Vitamin B Complex/ Vit C/Folic Acid (Nephrocaps) 1 cap HS PO 04/10/16 21:00 05/10/16 20:59 04/13/16 20:51 1 CAP Heparin Sodium (Porcine) (Heparin Sq 5000 Unit/0.5ml) 5,000 unit Q12H SQ 04/11/16 21:00 05/11/16 20:59 04/12/16 20:58 5,000 UNIT Albuterol/ Ipratropium (Duoneb) 3 ml QIDR PRN INH 04/11/16 16:00 05/11/16 15:59 Levofloxacin (Levaquin Tab) 750 mg Q2D@2000 PO 04/13/16 20:00 04/15/16 20:01 04/13/16 20:05 750 MG Heparin Sodium (Porcine) 1000 unit 1,000 unit TODAY@0800 IV 04/14/16 08:00 04/14/16 16:00 Epoetin Bradly 82035 units/ Syringe 0.6 ml @ 1 mls/min TODAY@0800 IV. 04/14/16 08:00 04/14/16 16:00 04/14/16 11:41 1 MLS/MIN Methylprednisolone Sodium Succinate/ Syringe (Solu-Medrol IV/ Syringe) 0.64 ml @ 1.5 mls/min DAILY IV 04/14/16 09:00 05/14/16 08:59 Insulin Glargine (Lantus Solostar Pen) IF BSG >,180 GIVE 8 UNITS... HS SC 04/14/16 21:00 05/14/16 20:59 Objective Vital Signs Date Time Temp Pulse Resp B/P Pulse Ox O2 Delivery O2 Flow Rate FiO2 04/14/16 13:07 36.6 66 16 150/83 90 Nasal Cannula 2.0 04/14/16 12:18 36.7 68 133/69 04/14/16 12:00 75 131/64 04/14/16 11:45 77 125/56 04/14/16 11:30 67 106/52 04/14/16 11:15 73 113/54 04/14/16 11:00 69 122/51 04/14/16 10:45 55 113/60 04/14/16 10:30 61 100/61 04/14/16 10:15 68 116/60 04/14/16 10:00 72 106/42 04/14/16 09:45 76 124/68 04/14/16 09:30 76 122/66 04/14/16 09:15 81 170/81 04/14/16 09:00 95 178/95 04/14/16 08:45 92 175/81 04/14/16 08:30 92 171/80 04/14/16 08:28 36.8 94 180/67 04/14/16 07:57 100 152/84 96 Nasal Cannula 2.0 04/14/16 07:30 Nasal Cannula 2.0 04/14/16 07:29 36.7 20 04/14/16 00:10 Nasal Cannula 2.0 04/13/16 23:02 36.7 66 16 131/61 94 Nasal Cannula 3.0 04/13/16 19:52 37.1 78 18 92 3.0 04/13/16 19:50 93 Nasal Cannula 2.0 04/13/16 19:50 36.5 88 16 183/73 93 Nasal Cannula 2.0 04/13/16 16:00 Room Air Physical Exam General Appearance: WD/WN Eyes: normal inspection ENT: normal ENT inspection Neck: supple Respiratory/Chest: chest non-tender, + crackles Cardiovascular: regular rate, rhythm, no edema Abdomen: normal bowel sounds, non tender, soft Extremities: normal range of motion, non-tender Neurologic/Psychiatric: 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, no motor/sensory deficits, alert Skin: normal color Lymphatic: no adenopathy Laboratory Results Last 24 Hours Test 04/13/16 16:08 04/13/16 20:38 04/14/16 05:15 04/14/16 07:10 Bedside Glucose 148 mg/dl 170 mg/dl 86 mg/dl White Blood Count 15.78 K/uL Red Blood Count 3.23 M/uL Hemoglobin 10.3 g/dL Hematocrit 31.8 % Mean Corpuscular Volume 98.5 fL Mean Corpuscular Hemoglobin 31.9 pg Mean Corpuscular Hemoglobin Concent 32.4 g/dl RDW Standard Deviation 64.4 fL RDW Coefficient of Variation 19.1 % Platelet Count 310 K/uL Mean Platelet Volume 8.8 fL Nucleated RBC Absolute Count (auto) 0.06 K/uL Nucleated Red Blood Cells % 0.4 % Activated Partial Thromboplast Time 23.8 SECONDS Partial Thromboplastin Ratio 0.9 Sodium Level 140 mmol/L Potassium Level 3.4 mmol/L Chloride Level 98 mmol/L Carbon Dioxide Level 29 mmol/L Anion Gap 13.0 mmol/L Blood Urea Nitrogen 32 mg/dl Creatinine 5.70 mg/dl Est Creatinine Clear Calc Drug Dose 7.0 ml/min Estimated GFR () 7.2 Estimated GFR (Non- 6.2 BUN/Creatinine Ratio 5.7 Random Glucose 63 mg/dl Calcium Level 8.5 mg/dl Test 04/14/16 12:58 Bedside Glucose 121 mg/dl Assessment and Plan HCAP -completed 7 day course of antibiotics today/renally dosed Levaquin given yesterday - check CBC in am Leukocytosis - suspect 2 to steroids however given SOB and physical exam check CXR - check CBC in am ESRD HD m/w/f - HD today - currently euvolemic Anemia - administered 1 u pRBC on 1.29 - HGB stable around 9 Hypoxic Respiratory Failure - on 2 L NC - check ambulatory oximetry Vascular Dementia - appears to baseline mental status h/o CAD/PVD - ASA/Coreg HTN - cont clonidine Hypothyroidism - cont Synthroid Atrial fibrillation - cont rate control with coreg - not a candidate for anticoagulation due to falls DMII - cont SSI - accuchecks Decreased appetite - nutrition consult - will consider appetite stimulant if no improvement FULL CODE
--- NOTE | 2016-04-14 16:11 | DIAGNOSTIC IMAGING REPORT ---
CHEST 2 VIEWS ROUTINE CLINICAL HISTORY: Leukocytosis. Pneumonia. COMPARISON STUDY: 04/12/2016 FINDINGS: The cardiac and mediastinal contours remain stable. The patient is status post a midline sternotomy. There are diffuse bilateral interstitial opacities. There is blunting of the lateral costophrenic angles suggesting tiny pleural effusions. More focal airspace opacities are visualized the right medial lung base.[ IMPRESSION: Mild cardiomegaly, diffuse bilateral interstitial opacities, and small bilateral pleural effusions. The findings could represent either congestive failure, or a bilateral interstitial inflammatory process. Clinical and radiographic follow-up is recommended. Electronically signed by: Carrington Berman M.D. 04/14/2016 4:09 PM Dictated Date/Time: 04/14/2016 4:07 PM
[2016-04-14] MEDS: NEPHROCAPS PO SCH (20:39)
[2016-04-14] MEDS ORDERED: INSULIN GLARGINE SOLOSTAR 100 UNITS/ML 3 ML PEN SC SCH (21:00)
[2016-04-15 01:12] VITALS: BP 144/72; PULSE 71; TEMP 36.7; O2SAT 92
[2016-04-15] MEDS: LEVOTHYROXINE 100 MCG TAB PO SCH (06:19)
[2016-04-15 08:39] VITALS: O2SAT 92
[2016-04-15] MEDS ORDERED: PRED10TA PO (08:39)
--- NOTE | 2016-04-15 08:41 | Discharge Instructions ---
Discharge Instructions Admission Admission Date: Apr 09, 2016 at 17:04 Admission Diagnosis: Renal Failure, Hypoxia, Chf. Care Plan - Goal(s): Decrease discomfort Care Plan - Instructions: Activity Recommendations: no limitations Recommended Home Diet: Renal, Type 2 Diabetes Provider Instructions: Take prednisone for 5 days Course of levaquin has been completed VTE Core Measure Inpt VTE Proph given/why not?: SCD's Laboratory Results Test Results: Hemoglobin A1c Test 04/09/16 17:42 Range/Units Estimated Average Glucose 183 mg/dl Hemoglobin A1c 8.0 H 4.5-5.6 % Gloria Vale Recommendations: Call your doctor if: * Temperature above 101 degrees * Pain not relieved by pain medicine ordered * There is increased drainage or redness from any incision * You have any unanswered questions or concerns. Your Doctors Instructions noted above were prepared by provider Marla Carpenter.
[2016-04-15] MEDS: HEPARIN SOD 5000 UNIT/0.5 ML CARP SQ SCH (09:00)
[2016-04-15] MEDS: METHYLPREDNISOLONE IV 40 MG in SYRINGE 0 ML IV SCH (09:00)
[2016-04-15] MEDS ORDERED: LEVOFLOXACIN 750 MG TAB PO ONE (09:00)
[2016-04-15] MEDS: INSULIN ASPART 100 UNITS/ML 3 ML PEN SC SCH (09:18)
[2016-04-15] MEDS: CARVEDILOL 12.5 MG TAB PO SCH (09:19)
[2016-04-15] MEDS: SERTRALINE HCL 100 MG TAB PO SCH (09:20)
[2016-04-15] MEDS: PANTOprazole SOD 40 MG TAB PO SCH (09:20)
[2016-04-15] MEDS: CLONIDINE HCL 0.1 MG TAB PO SCH (09:20)
[2016-04-15 09:40] VITALS: BP 185/64; PULSE 82; TEMP 36.5; O2SAT 92
[2016-04-15 10:01] VITALS: BP 185/64; PULSE 82; TEMP 36.5; O2SAT 92
[2016-04-15 10:08] VITALS: BP 142/54
--- NOTE | 2016-04-15 14:07 | Discharge Summary ---
Discharge Summary Admission Date: Apr 09, 2016 at 17:04 Discharge Date: Apr 15, 2016 Discharge Disposition: Home Principal Diagnosis: ESRD with Volume Overload/Pneumonia Consultations: Nephrology Medication Reconciliation New Medications: Prednisone Tab (Prednisone) 10 Mg Tab 40 MG PO DAILY for 5 Days, #20 TAB Continued Medications: Calcium Acetate (Phoslo 667 Mg) 667 Mg Cap 1 CAP PO WM, CAP Carvedilol (Coreg) 12.5 Mg Tab 12.5 MG PO, TAB Clonidine Hcl (Catapres) 0.2 Mg Tab 1 TAB PO BID for 30 Days, #60 TAB 5 Refills Fluticasone Propionate (Nasal) (Flonase Allergy Relief) 50 Mcg/Act Spr Insulin Aspart 70/30 (Novolog Mix 70/30) Susp 0 SC, BTL Ipratropium-Albuterol (Duoneb) 3 Ml Nebu 1 TREATMENT INH Q4H, INHA Levothyroxine Sodium (Synthroid) 100 Mcg Tab Pantoprazole (Protonix) 40 Mg Tab 40 MG PO DAILY, #30 TAB Polyethylene Glycol-Propylene (Systane) 1 Angelic Angelic 1 DROPS OP QID, #30 ML 6 Refills Sertraline (Zoloft) 100 Mg Tab 100 MG PO DAILY, TAB Sodium Polystyrene Sulfonate (Kayexalate) 1 Gm Powd Sucralfate (Carafate) 1 Gm/10 Ml Therese 10 ML PO BID for 6 Days, #120 ML 1 Refill Vitamin B Cmplx/Vitc/Folic Ac (Nephrocaps) Cap 1 CAP PO DAILY for 90 Days, #90 CAP 3 Refills Discontinued Medications: Amlodipine (Norvasc) 5 Mg Tab 5 MG PO DAILY, TAB Insulin Aspart 70/30 (Novolog Mix 70/30) Susp 0 SC, BTL Levofloxacin (Levaquin) 250 Mg Tab 250 MG PO DAILY for 10 Days, TAB [vitamin d] () Discharge Exam Review of Systems: Respiratory: No dyspnea at rest, No dyspnea on exertion, No shortness of breath Cardiovascular: No orthopnea Abdomen: No pain Physical Exam: General Appearance: WD/WN Eyes: normal inspection ENT: normal ENT inspection Neck: supple Respiratory/Chest: chest non-tender Cardiovascular: + irregularly irregular Abdomen / GI: normal bowel sounds Extremities: normal inspection Neurologic/Psychiatric: alert Skin: normal color Lymphatic: no adenopathy Hospital Course Admission HPI Patient is a direct admit from an [facility] in [place]. She was apparently admitted there due to shortness of breath and hypoxia, it was felt to be due to a combination of pneumonia and pleural effusion, frequently. She had been placed on IV Rocephin and IV Levaquin for 3 days and there was concern that she was not improving. I also note that she appears to be in atrial fibrillation and I do not see that on any of her old records, so I am considering that a new finding. The patient has underlying vascular dementia, so history is taken from the chart. I evaluated the patient and asked her what her living arrangements are and she told me that she was living independently at home; however, I see that she is actually in either a jail or a personal group home. So I do not feel her history is reliable. Hospital Course by problem HCAP -completed 10 day course of antibiotics/give last renal dose of levaquin on day of discharge ESRD HD m/w/f eith volume overload on admission - nephrology followed patient during hospital stay - euvolemic at time of discharge Hypoxic Respiratory Failure - resolved at time of discharge with diuresis and Leukocytosis - suspect 2/2 to steroids Anemia - administered 1 u pRBC on 1.29 - HGB stable around 9 Vascular Dementia - appears to baseline mental status - during hospital stay patient refused multiple treatment h/o CAD/PVD - ASA/Coreg HTN - cont clonidine Hypothyroidism - cont Synthroid Atrial fibrillation - cont rate control with coreg - not a candidate for anticoagulation due to falls DMII - cont SSI - accuchecks Decreased appetite - appetite stimulant should be considered in the future FULL CODE Total Time Spent: Greater than 30 minutes This includes examination of the patient, discharge planning, medication reconciliation, and communication with other providers. Discharge Instructions Please refer to the electronic Patient Visit Report (Discharge Instructions) for additional information.
== END 2016-04-15 11:20 | DRG 640 ==
LOC: ENRESERVDT → ENRESERVTM → C.2T 15:25 → UNDOADMIN 15:25 → C.2T 17:04 → EDBEDREQ 04-13 16:09 → C.MSN 04-13 20:04
PROVIDERS: ADMIT Hospitalist; ATTEND Hospitalist
DX: E87.70 Fluid overload, unspecified (principal); N18.6 End stage renal disease; J18.9 Pneumonia, unspecified organism; J96.91 Respiratory failure, unspecified with hypoxia; I12.0 Hypertensive chronic kidney disease with stage 5 chronic kidney disease or end stage renal disease; J90 Pleural effusion, not elsewhere classified; Q60.0 Renal agenesis, unilateral; E11.22 Type 2 diabetes mellitus with diabetic chronic kidney disease; I48.0 Paroxysmal atrial fibrillation; F32.9 Major depressive disorder, single episode, unspecified; E03.9 Hypothyroidism, unspecified; I25.10 Atherosclerotic heart disease of native coronary artery without angina pectoris; E78.5 Hyperlipidemia, unspecified; F01.50 Vascular dementia, unspecified severity, without behavioral disturbance, psychotic disturbance, mood disturbance, and anxiety; D63.1 Anemia in chronic kidney disease; E11.51 Type 2 diabetes mellitus with diabetic peripheral angiopathy without gangrene; Z99.2 Dependence on renal dialysis; Z95.1 Presence of aortocoronary bypass graft; Z87.891 Personal history of nicotine dependence; R26.9 Unspecified abnormalities of gait and mobility; Z79.4 Long term (current) use of insulin; Z79.899 Other long term (current) drug therapy; Z87.11 Personal history of peptic ulcer disease; Z87.19 Personal history of other diseases of the digestive system